=== PATIENT | female | born 1965 | race Caucasian/White ===

== ENCOUNTER 2016-11-03 08:26 | Emergency (ER) | payer BC, OTHER ==
[~2016-11-03] VITALS: Ht 167.6 cm; Wt 57.1 kg
[~2016-11-03 08:26] MED LIST: ASPI-390 PO; CIME-56 PO; RIZA10TA18 PO
[2016-11-03 08:29] VITALS: TEMP 37.1; Ht 167.6 cm; Wt 57.1 kg
[2016-11-03] MEDS ORDERED: KETOROLAC TROMETHAMINE 30 MG/ML VIAL IV STA (08:44)
[2016-11-03] MEDS ORDERED: SODIUM CHLORIDE 0.9% 1000ML 1,000 ML IV STA (08:44)
[2016-11-03] MEDS ORDERED: ALBUT/IPRATROP 3MG/0.5MG NEB 3 ML VIAL INH STA (08:44)
--- NOTE | 2016-11-03 09:00 | EMERGENCY ROOM VISIT NOTE ---
History Report prepared by Juan J: Lay Hdez Under the Supervision of: Dr. Kamlesh Posadas D.O. First contact with patient: 08:35 Chief Complaint: RIB PAIN Stated Complaint: RIB PAIN, COUGH, VARMA WHEN BREATHING History of Present Illness The patient is a 50 year old female who presents to the Emergency Room with complaints of a sudden onset of left sided rib pain after coughing just prior to arrival. Currently, she rates her discomfort as an 8/10 which increases with breathing and coughing. Patient notes that she began with a cough and cold like symptoms 3 weeks ago. Although her cold symptoms improved, her cough has persisted, and continued to worsen. Yesterday afternoon, while at work, patient states that the heat shut off in her office, and the building was very cold, which made her cough worse. She then began experiencing a burning sensation to her bilateral chest with inhalation which has persisted since that time. This morning, patient notes that she was eating breakfast when she coughed and suddenly experienced a painful popping sensation to her left chest. This was concerning to her as it felt similar to when she experienced an injury to her chest wall cartilage several years prior. Patient states that noticed mild swelling to her bilateral legs last evening, which is abnormal for her. She also feels nauseous but she denies recent fevers, chills, headache, sore throat , shortness of breath, abdominal pain, vomiting, diarrhea, or urinary symptoms. Patient states that she has a history of asthma and is prone to bronchitis. Patient has history of uterine ablation in 2012. She has not had a period since that time. Patient denies hx of tobacco use. 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 A total of 10 systems reviewed and were otherwise negative. Past Medical & Surgical Medical Problems: (1) Migraine (2) Ovarian cyst Surgical Problems: (1) H/O prior ablation treatment (2) History of dilatation and curettage Social History Smoking Status: Never Smoker Alcohol Use: none Marital Status: Housing Status: lives with significant other Occupation Status: employed Current/Historical Medications Scheduled Albuterol Hfa (Ventolin Hfa), 1 PUFF INH Q4 Ibuprofen Tab (Advil), 400-600 MG PO Q6H Prednisone (Prednisone Tab), 40 MG PO DAILY Rizatriptan Benzoate (Maxalt), 10 MG PO UD Allergies Coded Allergies: Latex (Verified Allergy, Mild, RASH, BLISTERS, 11/03/16) Meperidine (Unverified Allergy, Unknown, UNKNOWN, 11/03/16) Peanut Oil (Unverified Allergy, Unknown, UNKNOWN, 11/03/16) Penicillins (Unverified Allergy, Unknown, UNKNOWN, 11/03/16) Progesterone (Unverified Allergy, Unknown, UNKNOWN, 11/03/16) Physical Exam Vital Signs Date Time Temp Pulse Resp B/P Pulse Ox O2 Delivery O2 Flow Rate FiO2 11/03/16 10:27 78 18 110/52 96 Room Air 11/03/16 09:48 88 18 115/84 99 Room Air 11/03/16 09:08 80 11/03/16 09:06 96 Room Air 11/03/16 09:06 96 Room Air 11/03/16 08:29 37.1 86 18 120/71 98 Room Air Physical Exam GENERAL: Patient is awake, alert, somewhat anxious and uncomfortable appearing. EYES: The conjunctivae are clear. The pupils are round and reactive. EARS, NOSE, MOUTH AND THROAT: The nose is without any evidence of any deformity. Mucous membranes are moist tongue is midline NECK: The neck is nontender and supple. RESPIRATORY: Splinting respirations noted. Diminished breath sounds noted in the left lung field. Faint wheezing in both upper lung reyes. No retractions were noted. CARDIOVASCULAR: Regular rate and rhythm noted there no murmurs rubs or gallops normal S1 normal S2 GASTROINTESTINAL: The abdomen is soft. Bowel sounds are present in all quadrants. Abdomen is nontender CHEST: There was tenderness over the left anterior chest wall to palpation. MUSCULOSKELETAL/EXTREMITIES: There is no evidence of gross deformity full range of motion is noted in the hips and shoulders SKIN: Trace pedal edema noted bilaterally. There is no obvious evidence of any rash. There are no petechiae, pallor or cyanosis noted. NEUROLOGIC: Patient is awake alert and oriented x3 strength. Medical Decision & Procedures ER Provider Diagnostic Interpretation: X-ray results as stated below per interpretation by me and the radiologist. CHEST ONE VIEW PORTABLE CLINICAL HISTORY: Respiratory distress. Asthma. Cough. COMPARISON STUDY: 01/27/2011 FINDINGS: The cardiac and mediastinal contours are normal. There is no evidence of focal pulmonary consolidation. There is no evidence of failure. No pleural effusions are visualized.[ IMPRESSION: No active disease in the chest. Electronically signed by: Alexander Cote M.D. 11/03/2016 9:02 AM Laboratory Results 11/03/16 09:10 Red Blood Count 4.07, Mean Corpuscular Volume 92.4, Mean Corpuscular Hemoglobin 31.0, Mean Corpuscular Hemoglobin Concent 33.5, Mean Platelet Volume 9.6, Neutrophils (%) (Auto) 58.5, Lymphocytes (%) (Auto) 27.1, Monocytes (%) (Auto) 10.6, Eosinophils (%) (Auto) 3.0, Basophils (%) (Auto) 0.6, Neutrophils # (Auto ) 2.92, Lymphocytes # (Auto) 1.35, Monocytes # (Auto) 0.53, Eosinophils # (Auto ) 0.15, Basophils # (Auto) 0.03 11/03/16 09:10 Test 11/03/16 09:10 11/03/16 09:15 11/03/16 09:20 White Blood Count 4.99 K/uL (4.8-10.8) Red Blood Count 4.07 M/uL (4.2-5.4) Hemoglobin 12.6 g/dL (12.0-16.0) Hematocrit 37.6 % (37-47) Mean Corpuscular Volume 92.4 fL (80-100) Mean Corpuscular Hemoglobin 31.0 pg (25-34) Mean Corpuscular Hemoglobin Concent 33.5 g/dl (32-36) Platelet Count 303 K/uL (130-400) Mean Platelet Volume 9.6 fL (7.4-10.4) Neutrophils (%) (Auto) 58.5 % Lymphocytes (%) (Auto) 27.1 % Monocytes (%) (Auto) 10.6 % Eosinophils (%) (Auto) 3.0 % Basophils (%) (Auto) 0.6 % Neutrophils # (Auto) 2.92 K/uL (1.4-6.5) Lymphocytes # (Auto) 1.35 K/uL (1.2-3.4) Monocytes # (Auto) 0.53 K/uL (0.11-0.59) Eosinophils # (Auto) 0.15 K/uL (0-0.5) Basophils # (Auto) 0.03 K/uL (0-0.2) RDW Standard Deviation 45.4 fL (36.4-46.3) RDW Coefficient of Variation 13.5 % (11.5-14.5) Immature Granulocyte % (Auto) 0.2 % Immature Granulocyte # (Auto) 0.01 K/uL (0.00-0.02) Prothrombin Time 10.4 SECONDS (9.0-12.0) Prothromb Time International Ratio 1.0 (0.9-1.1) Activated Partial Thromboplast Time 24.8 SECONDS (21.0-31.0) Partial Thromboplastin Ratio 1.0 Anion Gap 9.0 mmol/L (3-11) Est Creatinine Clear Calc Drug Dose 88.2 ml/min Estimated GFR () 117.4 Estimated GFR (Non- 101.3 BUN/Creatinine Ratio 27.2 (10-20) Calcium Level 9.4 mg/dl (8.5-10.1) Total Bilirubin 1.1 mg/dl (0.2-1) Aspartate Amino Transf (AST/SGOT) 21 U/L (15-37) Alanine Aminotransferase (ALT/SGPT) 29 U/L (12-78) Alkaline Phosphatase 53 U/L (45-117) Total Creatine Kinase 54 U/L (26-192) Creatine Kinase MB 0.8 ng/ml (0.5-3.6) Creatine Kinase MB Ratio 1.5 (0-3.0) Troponin I < 0.015 ng/ml (0-0.045) Total Protein 7.6 gm/dl (6.4-8.2) Albumin 3.9 gm/dl (3.4-5.0) Globulin 3.7 gm/dl (2.5-4.0) Albumin/Globulin Ratio 1.1 (0.9-2) Human Chorionic Gonadotropin, Qual NEG (NEG) Bedside D-Dimer 109 ng/mlFEU (0-450) Urine Color YELLOW Urine Appearance CLEAR (CLEAR) Urine pH 7.5 (4.5-7.5) Urine Specific [place] 1.007 (1.000-1.030) Urine Protein NEG (NEG) Urine Glucose (UA) NEG (NEG) Urine Ketones NEG (NEG) Urine Occult Blood NEG (NEG) Urine Nitrite NEG (NEG) Urine Bilirubin NEG (NEG) Urine Urobilinogen NEG (NEG) Urine Leukocyte Esterase NEG (NEG) Laboratory results per my review. Medications Administered Medications (Trade) Dose Ordered Sig/Rosalva Route Start Time Stop Time Status Last Admin Dose Admin Sodium Chloride (Nss 1000ml) 1,000 ml @ 999 mls/hr Q1H1M STAT IV 11/03/16 08:44 11/03/16 09:44 DC 11/03/16 08:52 999 MLS/HR Albuterol/ Ipratropium (Duoneb) 3 ml NOW STAT INH 11/03/16 08:44 11/03/16 08:46 DC 11/03/16 08:51 3 ML ECG Indication: chest pain Rate (beats per minute): 77 Rhythm: normal sinus Findings: no acute ischemic change, no ectopy, other (No acute ST segments) Change: no significant change (when compared to EKG from 01/27/11.) ED Course 0840: The patient was evaluated in room B11. A complete history and physical examination were performed. 0844: Toradol 30 mg IV, DuoNeb 3 ml INH and NSS bolus IV were ordered. 1010: Upon revaluation, the patient was doing well and appeared to be resting more comfortably. I updated her on the results of her radiology reports and lab tests. Discharge instructions were also discussed at this time. She verbalized her understanding and agreement with the treatment plan, and she is now ready for disposition. Medical Decision Differential diagnosis: Etiologies such as cardiac ischemia, aortic dissection, pulmonary embolism, pneumonia, pneumothorax, musculoskeletal, infections, pericarditis, myocarditis , esophageal rupture, gastrointestinal, as well as others were entertained. Nursing notes reviewed. The patient is a 50-year-old female who presented to the emergency department for an evaluation of chest pain. The patient has had a problem with a cough for the last few weeks. She states that she's been coughing a lot and felt a pull in her left chest wall. She presented with very significant left-sided chest pain which was reproducible. I do feel that this pain is musculoskeletal in nature. She states that she had a similar episode in the past but I was concerned with the length of this cough. I discussed the patient's laboratory radiographic studies with her. She was found have a negative d-dimer. Her chest x-ray did not show any acute disease. She was started on a DuoNeb as well as a course of prednisone. She was also encouraged to continue taking Motrin and Tylenol for pain and rest. She was also encouraged to continue all other medications as prescribed and follow-up with her family doctor this week. Otherwise she was encouraged to return to emergency department immediately if symptoms change worsen or if the need arises. Impression Primary Impression: Chest wall pain Additional Impression: Bronchitis Scribe Attestation The scribe's documentation has been prepared under my direction and personally reviewed by me in its entirety. I confirm that the note above accurately reflects all work, treatment, procedures, and medical decision making performed by me. Departure Information Dispostion Home / Self-Care Prescriptions Prednisone (Prednisone Tab) 20 Mg Tab 40 MG PO DAILY, #10 TAB Prov: Kamlesh Posadas, 11/03/16 Albuterol Hfa (VENTOLIN HFA) 200 Puffs/09754 Mcg Aers 1 PUFF INH Q4, #1 INHALER Prov: Kamlesh Posadas DO 11/03/16 Referrals Colin Gonzalez M.D. (PCP) Forms HOME CARE DOCUMENTATION FORM, IMPORTANT VISIT INFORMATION, WORK / SCHOOL INSTRUCTIONS Patient Instructions A Signature Page, My [facility]
--- NOTE | 2016-11-03 09:03 | DIAGNOSTIC IMAGING REPORT ---
CHEST ONE VIEW PORTABLE CLINICAL HISTORY: Respiratory distress. Asthma. Cough. COMPARISON STUDY: 01/27/2011 FINDINGS: The cardiac and mediastinal contours are normal. There is no evidence of focal pulmonary consolidation. There is no evidence of failure. No pleural effusions are visualized.[ IMPRESSION: No active disease in the chest. Electronically signed by: Alexander Cote M.D. 11/03/2016 9:02 AM
[2016-11-03 09:06] VITALS: O2SAT 96
[2016-11-03 09:22] LABS: BASO % 0.6 %; BASO ABS # 0.03 K/uL (0-0.2); COMPLETE YES; HEMATOCRIT 37.6 % (37-47); IG% 0.2 %; LYMPH % 27.1 %; LYMPH ABS # 1.35 K/uL (1.2-3.4); MEAN CELL VOLUME 92.4 fL (80-100); MEAN CORPUSCULAR HGB CONC 33.5 g/dl (32-36); MEAN PLATELET VOLUME 9.6 fL (7.4-10.4); MONO % 10.6 %; NEUT % 58.5 %; PLATELET COUNT 303 K/uL (130-400); RED BLOOD COUNT 4.07 M/uL (4.2-5.4); WHITE BLOOD COUNT 4.99 K/uL (4.8-10.8)
[2016-11-03 09:31] LABS: PROTHROMBIN TIME (PATIENT) 10.4 SECONDS (9.0-12.0)
[2016-11-03] MEDS ORDERED: IBUP-103 PO (09:31)
[2016-11-03 09:38] LABS: URINE APPEARANCE CLEAR (CLEAR); URINE BILIRUBIN NEG (NEG); URINE COLOR YELLOW; URINE NITRITE NEG (NEG); URINE PH 7.5 (4.5-7.5); URINE SPECIFIC GRAVITY 1.007 (1.000-1.030); UROBILINOGEN NEG (NEG)
[2016-11-03 09:42] LABS: ALT/SGPT 29 U/L (12-78); BLOOD UREA NITROGEN 19 mg/dl (7-18); BUN/CREATININE RATIO 27.2 (10-20); CALCIUM 9.4 mg/dl (8.5-10.1); CARBON DIOXIDE 26 mmol/L (21-32); CHLORIDE 106 mmol/L (98-107); CREATININE 0.68 mg/dl (0.60-1.20); GLUCOSE 87 mg/dl (70-99); POTASSIUM 4.1 mmol/L (3.5-5.1); SODIUM 141 mmol/L (136-145)
[2016-11-03 09:47] LABS: ALB/GLOB RATIO 1.1 (0.9-2); ALKALINE PHOSPHATASE 53 U/L (45-117); AST/SGOT 21 U/L (15-37); CKMB/CK RATIO 1.5 (0-3.0)
[2016-11-03 09:53] LABS: MANUAL MICROSCOPIC REQUIRED? NO; REVIEW REQ? NO
[2016-11-03 09:54] LABS: PREG INTERNAL NEGATIVE QC NEG CLEAR BACKGROUND; PREG INTERNAL POSITIVE QC POS CONTROL LINE
[2016-11-03] MEDS ORDERED: PRED20TA2 PO (10:13)
[2016-11-03] MEDS ORDERED: VNTHFA/IN INH (10:13)
[2016-11-03 10:27] VITALS: BP 110/52; PULSE 78; O2SAT 96
== END 2016-11-03 10:50 | disposition home or self-care (01) ==
LOC: C.EDB 08:27
DX: R07.89 Other chest pain (principal); J40 Bronchitis, not specified as acute or chronic; J45.909 Unspecified asthma, uncomplicated; G43.909 Migraine, unspecified, not intractable, without status migrainosus

== ENCOUNTER → 2017-02-01 | Outpatient (CLI) | payer BC ==
[~2017-02-01] MED LIST changes: -ASPI-390 PO; -CIME-56 PO; +IBUP-103 PO; +PRED20TA2 PO; +VNTHFA/IN INH
[2017-02-01 13:24] LABS: THYROID STIMULATING HORMONE 4.59 uIu/ml (0.300-4.500)
== END | disposition home or self-care (01) ==
LOC: C.LAB1850 11:51
PROVIDERS: ATTEND Obstetrics & Gynecology
DX: N95.1 Menopausal and female climacteric states (principal); R68.89 Other general symptoms and signs

== ENCOUNTER → 2017-02-01 | Outpatient (CLI) | payer BC | END | disposition home or self-care (01) | LOC: C.PAPS 16:34 | PROVIDERS: ATTEND Obstetrics & Gynecology | DX: Z01.419 Encounter for gynecological examination (general) (routine) without abnormal findings (principal) ==

== ENCOUNTER → 2017-02-01 | Outpatient (CLI) | payer BC ==
[2017-02-01 15:36] LABS: PREG INTERNAL NEGATIVE QC NEG CLEAR BACKGROUND; PREG INTERNAL POSITIVE QC POS CONTROL LINE
== END | disposition home or self-care (01) ==
LOC: C.LABSPEC 14:41
PROVIDERS: ATTEND Obstetrics & Gynecology
DX: N91.2 Amenorrhea, unspecified (principal)

== ENCOUNTER → 2017-02-11 | Outpatient (CLI) | payer BC ==
--- NOTE | 2017-02-15 13:19 | MAMMOGRAPHY REPORT ---
BILATERAL DIGITAL SCREENING MAMMOGRAM TOMOSYNTHESIS WITH CAD: 02/11/2017 CLINICAL HISTORY: Routine screening. Patient has no complaints. TECHNIQUE: Breast tomosynthesis in addition to standard 2D mammography was performed. Current study was also evaluated with a Computer Aided Detection (CAD) system. COMPARISON: No prior exams were available for comparison. BREAST COMPOSITION: The tissue of both breasts is extremely dense, which lowers the sensitivity of mammography. FINDINGS: There is a benign intramammary lymph node in the upper outer quadrant of the left breast. No suspicious mass, architectural distortion or cluster of suspicious microcalcifications is seen. IMPRESSION: ACR BI-RADS CATEGORY 1: NEGATIVE There is no mammographic evidence of malignancy. Prior outside mammogram are currently being reques corie and if obtained a will be reviewed, compared to the current exam to assess for any more subtle c hanges, and an addendum will be made to this report. Otherwise, a 1 year screening mammogram is rec ommended. The patient will receive written notification of the results. Approximately 10% of breast cancers are not detected with mammography. A negative mammographic repor t should not delay biopsy if a clinically suggestive mass is present. Cat Bailey M.D. ay/:02/14/2017 17:58:15 Claims Technician: Wendy FORBES)(Jax), [facility] letter sent: Normal 1/2 BI-RADS Code: ACR BI-RADS Category 1: Negative
== END | disposition home or self-care (01) ==
LOC: C.MAMM 14:04
PROVIDERS: ATTEND Obstetrics & Gynecology
DX: Z12.31 Encounter for screening mammogram for malignant neoplasm of breast (principal)

== ENCOUNTER → 2017-02-17 | Outpatient (CLI) | payer BC ==
[2017-02-17 09:47] LABS: BASO % 0.5 %; BASO ABS # 0.02 K/uL (0-0.2); COMPLETE YES; HEMATOCRIT 39.6 % (37-47); LYMPH % 36.5 %; LYMPH ABS # 1.48 K/uL (1.2-3.4); MEAN CELL VOLUME 95.2 fL (80-100); MEAN CORPUSCULAR HGB CONC 33.6 g/dl (32-36); MONO % 10.6 %; NEUT % 49.4 %; PLATELET COUNT 245 K/uL (130-400); RED BLOOD COUNT 4.16 M/uL (4.2-5.4); WHITE BLOOD COUNT 4.06 K/uL (4.8-10.8)
[2017-02-17 10:37] LABS: ALT/SGPT 27 U/L (12-78); AST/SGOT 20 U/L (15-37); BLOOD UREA NITROGEN 19 mg/dl (7-18); BUN/CREATININE RATIO 22.2 (10-20); CALCIUM 9.3 mg/dl (8.5-10.1); CARBON DIOXIDE 26 mmol/L (21-32); CHLORIDE 105 mmol/L (98-107); CREATININE 0.84 mg/dl (0.60-1.20); GLUCOSE 84 mg/dl (70-99); SODIUM 141 mmol/L (136-145); TOTAL IRON BINDING CAPACITY 443 mcg/dl (250-450)
[2017-02-17 10:40] LABS: ALB/GLOB RATIO 1.2 (0.9-2); ALKALINE PHOSPHATASE 51 U/L (45-117)
[2017-02-17 12:15] LABS: LYME DISEASE AB IGM NEG (NEG)
[2017-02-17 12:18] LABS: LYME DISEASE AB IGG NEG (NEG)
== END | disposition home or self-care (01) ==
LOC: C.LAB 06:55
PROVIDERS: ATTEND Family Medicine
DX: R53.83 Other fatigue (principal)

== ENCOUNTER → 2017-05-04 | Outpatient (CLI) | payer BC ==
--- NOTE | 2017-05-04 11:52 | DIAGNOSTIC IMAGING REPORT ---
THYROID ULTRASOUND HISTORY: There are no THYROID NODULE COMPARISON: None. FINDINGS: Right lobe: Maximum dimension 5.3 cm. Generally heterogeneous internal architecture throughout. Complex nodule lower pole right thyroid measuring 1.5 x 1.0 cm. Left lobe: Heterogeneous internal architecture. Maximum dimension 5.5 cm. No major nodular pathology is present. Isthmus: No nodules. IMPRESSION: 1. Heterogeneous internal thyroid architecture bilaterally. 2. Slightly complex nodular density measuring 1.5 x 1.0 cm lower pole right thyroid. 3. Fine-needle aspiration under ultrasound guidance is suggested as follow-up. Electronically signed by: Jomar Cutler M.D. 05/04/2017 11:51 AM Dictated Date/Time: 05/04/2017 11:49 AM
== END | disposition home or self-care (01) ==
LOC: C.ULTRBC 11:21
PROVIDERS: ATTEND Family Medicine
DX: E04.1 Nontoxic single thyroid nodule (principal)

== ENCOUNTER → 2017-05-27 | Outpatient (CLI) | payer BC ==
[~2017-05-27] MED LIST changes: -PRED20TA2 PO; -VNTHFA/IN INH
--- NOTE | 2017-05-27 12:02 | Discharge Instructions ---
Discharge Instructions Procedure Procedure Date: May 27, 2017. Reason for visit: Nodular Density Of Lower Pole Of Right Thyroid. Discharge Discharge Date: May 27, 2017. Discharge Diagnosis: Right lobe thyroid nodule Instructions Activity Recommendations: No limitations Return to School/Work: no limitations Recommended Home Diet: No Limitations, Resume Previous Diet Provider Instructions: Ultrasound guided fine-needle aspiration of a right lower pole nodule was performed with 2 passes utilizing 25-gauge needles. Specimens were reviewed by the pathologist and deemed adequate for diagnosis. There were no immediate complications. ACTIVITY RECOMMENDATIONS: * Rest today. * Resume regular activity in one day. MEDICATIONS: * May take Tylenol or Ibuprofen as needed for pain. DIET: * Resume previous diet. SPECIAL CARE INSTRUCTIONS: Call your doctor if: * Temperature above 101 degrees F. * Pain not relieved by pain medicine ordered. * Increased drainage or redness from incision. * Notify your doctor with any questions or concerns. Call your doctor or go to the nearest Emergency Department if you experience: * Increased chest pain or shortness of breath. FOLLOW UP VISIT: Follow-up with Referring Physician as scheduled. Allergies Coded Allergies: Latex (Verified Allergy, Mild, RASH, BLISTERS, 11/03/16) Meperidine (Unverified Allergy, Unknown, UNKNOWN, 11/03/16) Peanut Oil (Unverified Allergy, Unknown, UNKNOWN, 11/03/16) Penicillins (Unverified Allergy, Unknown, UNKNOWN, 11/03/16) Progesterone (Unverified Allergy, Unknown, UNKNOWN, 11/03/16) [place] Recommendations: Call your doctor if: * Temperature above 101 degrees * Pain not relieved by pain medicine ordered * There is increased drainage or redness from any incision * You have any unanswered questions or concerns. Your Doctors Instructions noted above were prepared by provider Alejandro Pepper. Patient Signature Section: Patient Instructions Signature Page Dorothy Hopson-Given Patient (or Guardian) Signature/Date: I have read and understand the instructions given to me by my caregivers. Caregiver/RN/Doctor Signature/Date: The above-named patient and/or guardian has received patient instructions on this date. + Original Patient Signature Page (only) stays with chart. Please make copy for patient.
--- NOTE | 2017-05-27 13:03 | DIAGNOSTIC IMAGING REPORT ---
ULTRASOUND-GUIDED FINE-NEEDLE ASPIRATION THYROID CLINICAL HISTORY: Right thyroid nodule. COMPARISON STUDY: Thyroid ultrasound dated 05/04/2017. PROCEDURE: The risks, benefits, and alternatives to the procedure were discussed with the patient. Written informed consent was obtained. The patient was placed supine in ultrasound, and the 1.4 x 1.0 x 0.9 cm solid and cystic nodule in the right lower lobe of the thyroid was localized by ultrasound and selected for fine needle aspiration. The right neck was prepped and draped in the usual sterile fashion. The nodule was aspirated under ultrasound guidance with 2 passes utilizing 25-gauge needles. Specimens were reviewed by the pathologist in real-time and deemed adequate for diagnosis. The patient tolerated the procedure well and left the department in satisfactory condition. IMPRESSION: Completed fine-needle aspiration of a right lower pole thyroid nodule as above. Electronically signed by: Alejandro Pepper M.D. 05/27/2017 1:01 PM Dictated Date/Time: 05/27/2017 1:00 PM
== END | disposition home or self-care (01) ==
LOC: C.ULTR 10:48
PROVIDERS: ATTEND Family Medicine
DX: E04.1 Nontoxic single thyroid nodule (principal)

== ENCOUNTER → 2017-06-03 | Outpatient (CLI) | payer BC ==
[2017-06-03 14:10] LABS: PROLACTIN 8.31 ng/mL
[2017-06-03 14:11] LABS: THYROID STIMULATING HORMONE 2.62 uIu/ml (0.300-4.500)
[2017-06-08 02:17] LABS: MICROSOMAL AB 2 IU/ML (<9); PREGNENELONE **TC 31493X 11 ng/dL (22-237)
== END | disposition home or self-care (01) ==
LOC: C.LABBC 10:20
PROVIDERS: ATTEND Family Medicine
DX: E28.9 Ovarian dysfunction, unspecified (principal)

== ENCOUNTER → 2017-07-21 | Outpatient (CLI) | payer BC ==
--- NOTE | 2017-07-21 12:39 | DIAGNOSTIC IMAGING REPORT ---
PELVIS/BILATERAL HIP 2 VIEWS CLINICAL HISTORY: LEFT HIP PAIN pain COMPARISON STUDY: None FINDINGS: Negative study. Cortical margins are intact. No evidence for acetabular protrusion. Sacroiliac joints are symmetric. IMPRESSION: No acute process. The above report was generated using voice recognition software. It may contain grammatical, syntax or spelling errors. Electronically signed by: Jomar Cutler M.D. 07/21/2017 12:37 PM Dictated Date/Time: 07/21/2017 12:36 PM
== END | disposition home or self-care (01) ==
LOC: C.RAD 11:36
PROVIDERS: ATTEND Family Medicine
DX: M25.552 Pain in left hip (principal)

== ENCOUNTER 2018-02-21 15:30 | Emergency (ER) | payer BC ==
[~2018-02-21] VITALS: Ht 167.6 cm; Wt 55.8 kg
[~2018-02-21 15:30] MED LIST changes: -RIZA10TA18 PO
[2018-02-21 15:53] VITALS: O2SAT 99
[2018-02-21] MEDS ORDERED: NITROGLYCERIN 0.4 MG SL PER TAB CHARGE SL PRN (16:00)
[2018-02-21 16:01] VITALS: TEMP 36.7
--- NOTE | 2018-02-21 16:03 | EMERGENCY ROOM VISIT NOTE ---
History Report prepared by Juan J: Nichol Pacheco Under the Supervision of: Dr. Farhad Brown M.D. First contact with patient: 15:42 Chief Complaint: CHEST PAIN Stated Complaint: CHEST PAIN History of Present Illness The patient is a 52 year old female who presents to the Emergency Room with complaints of an sudden episode of chest pain which was shooting into her jaw. At the onset of her pain, the patient rates her pain as a 10/10. She reports she was at her PCP's office today for possible shingles on her right leg when the episode of chest pain occurred. The patient was given aspirin and nitroglycerin which decreased her pain to a 4/10. When EMS did the patient's EKG she said her chest pain was a 4/10. Presently, the patient rates her pain as a 2/10. The patient reports she has been having vertigo since Tuesday. The patient has a history of reflux, migraines and kidneys stones. The patient's father had a triple bypass at the age of 70. Pt denies LOC, headache, fevers, chills, diaphoresis, visual changes, neck pain, tearing pain radiating to the back, personal history or family history of aneurysm or pulmonary embolism, uncontrolled hypertension, breathing difficulties, leg swelling, coagulation abnormalities, prolonged travel, recent surgery or immobilization, nausea, vomiting, abdominal pain, melena, hematochezia, urinary symptoms, numbness, weakness, lymphadenopathy, rash, or other complaints. Source of History: patient Onset: just prior to arrival Position: chest Symptom Intensity: 2/10 Quality: other (radiates to jaw) Timing: other (episode) Associated Symptoms: + chest pain, No fevers, No chills, No headache, No diaphoresis, No cough, No neck pain, No SOB, No nausea, No vomiting, No abdominal pain, No back pain, No urinary symptoms, No weakness, No numbness Review of Systems See HPI for pertinent positives and negatives. A total of ten systems were reviewed and were otherwise negative. Past Medical & Surgical Medical Problems: (1) Migraine (2) Ovarian cyst Surgical Problems: (1) H/O prior ablation treatment (2) History of dilatation and curettage Social History Smoking Status: Never Smoker Alcohol Use: none Marital Status: Housing Status: lives with significant other Occupation Status: employed Current/Historical Medications Scheduled PRN Ibuprofen Tab (Advil), 200-600 MG PO Q6H PRN for Pain Rizatriptan Benzoate (Maxalt), 10 MG PO UD PRN for Migraine Allergies Coded Allergies: Latex (Verified Allergy, Mild, RASH, BLISTERS, 11/03/16) Meperidine (Unverified Allergy, Unknown, UNKNOWN, 11/03/16) Peanut Oil (Unverified Allergy, Unknown, UNKNOWN, 11/03/16) Penicillins (Unverified Allergy, Unknown, UNKNOWN, 11/03/16) Progesterone (Unverified Allergy, Unknown, UNKNOWN, 11/03/16) Physical Exam Vital Signs Date Time Temp Pulse Resp B/P (MAP) Pulse Ox O2 Delivery O2 Flow Rate FiO2 02/21/18 20:31 93 02/21/18 20:05 92 20 117/67 98 Room Air 02/21/18 19:46 Room Air 02/21/18 18:17 90 13 109/61 98 Room Air 02/21/18 16:25 97 18 02/21/18 16:21 102/64 02/21/18 16:20 93 14 99 02/21/18 16:17 112/66 02/21/18 16:15 88 20 02/21/18 16:14 83 02/21/18 16:13 85 26 128/63 98 Room Air 02/21/18 16:13 128/63 02/21/18 16:10 90 20 99 02/21/18 16:01 36.7 88 16 114/72 98 Room Air 02/21/18 15:54 98 Room Air 02/21/18 15:53 99 Room Air 02/21/18 15:53 99 Room Air Physical Exam GENERAL: Awake, alert, well-appearing, in no distress HENT: Normocephalic, atraumatic. Oropharynx unremarkable. EYES: Normal conjunctiva. Sclera non-icteric. NECK: Supple. No nuchal rigidity. FROM. No masses. RESPIRATORY: Clear to auscultation. No wheezes. No rales. Normal respiratory effort. CARDIAC: Normal rate. Normal rhythm. No murmurs. No rubs. Extremities warm and well perfused. Pulses equal. No JVD. GI: Soft, non-distended. No tenderness to palpation. No rebound or guarding. No masses. RECTAL: Deferred. MUSCULOSKELETAL: Atraumatic. Chest examination reveals no tenderness. The back is symmetrical on inspection without obvious abnormality. There is no CVA tenderness to palpation. No joint edema. LOWER EXTREMITIES: Calves are equal size bilaterally and non-tender. No edema. No discoloration. NEURO: Normal sensorium. No sensory or motor deficits noted. SKIN: Vesicular rash in right groin and labia extending to right gluteus, mild tenderness, no signs of cellulitis. Medical Decision & Procedures ER Provider Diagnostic Interpretation: Radiology results as stated below per my review and radiologist interpretation: CHEST ONE VIEW PORTABLE FINDINGS: The lungs are clear. Cardiac silhouette is normal in size. No pleural effusions. No pneumothorax. IMPRESSION: No acute process. Electronically signed by: Prasad Jacobs M.D. Laboratory Results 02/21/18 16:07 Red Blood Count 4.09, Mean Corpuscular Volume 95.1, Mean Corpuscular Hemoglobin 31.3, Mean Corpuscular Hemoglobin Concent 32.9, Mean Platelet Volume 8.9, Neutrophils (%) (Auto) 49.0, Lymphocytes (%) (Auto) 33.1, Monocytes (%) (Auto) 15.1, Eosinophils (%) (Auto) 2.1, Basophils (%) (Auto) 0.7, Neutrophils # (Auto ) 2.07, Lymphocytes # (Auto) 1.40, Monocytes # (Auto) 0.64, Eosinophils # (Auto ) 0.09, Basophils # (Auto) 0.03 02/21/18 16:07 Test 02/21/18 16:07 02/21/18 16:11 02/21/18 20:22 White Blood Count 4.23 K/uL (4.8-10.8) Red Blood Count 4.09 M/uL (4.2-5.4) Hemoglobin 12.8 g/dL (12.0-16.0) Hematocrit 38.9 % (37-47) Mean Corpuscular Volume 95.1 fL (80-100) Mean Corpuscular Hemoglobin 31.3 pg (25-34) Mean Corpuscular Hemoglobin Concent 32.9 g/dl (32-36) Platelet Count 211 K/uL (130-400) Mean Platelet Volume 8.9 fL (7.4-10.4) Neutrophils (%) (Auto) 49.0 % Lymphocytes (%) (Auto) 33.1 % Monocytes (%) (Auto) 15.1 % Eosinophils (%) (Auto) 2.1 % Basophils (%) (Auto) 0.7 % Neutrophils # (Auto) 2.07 K/uL (1.4-6.5) Lymphocytes # (Auto) 1.40 K/uL (1.2-3.4) Monocytes # (Auto) 0.64 K/uL (0.11-0.59) Eosinophils # (Auto) 0.09 K/uL (0-0.5) Basophils # (Auto) 0.03 K/uL (0-0.2) RDW Standard Deviation 44.4 fL (36.4-46.3) RDW Coefficient of Variation 12.8 % (11.5-14.5) Immature Granulocyte % (Auto) 0.0 % Immature Granulocyte # (Auto) 0.00 K/uL (0.00-0.02) Prothrombin Time 10.2 SECONDS (9.0-12.0) Prothromb Time International Ratio 1.0 (0.9-1.1) Activated Partial Thromboplast Time 24.8 SECONDS (21.0-31.0) Partial Thromboplastin Ratio 1.0 Anion Gap 4.0 mmol/L (3-11) Est Creatinine Clear Calc Drug Dose 76.4 ml/min Estimated GFR () 105.5 Estimated GFR (Non- 91.0 BUN/Creatinine Ratio 18.3 (10-20) Calcium Level 8.7 mg/dl (8.5-10.1) Total Bilirubin 1.2 mg/dl (0.2-1) Direct Bilirubin 0.3 mg/dl (0-0.2) Aspartate Amino Transf (AST/SGOT) 18 U/L (15-37) Alanine Aminotransferase (ALT/SGPT) 25 U/L (12-78) Alkaline Phosphatase 49 U/L (45-117) Creatine Kinase MB 0.7 ng/ml (0.5-3.6) Creatine Kinase MB Ratio 1.2 (0-3.0) Total Protein 7.6 gm/dl (6.4-8.2) Albumin 3.9 gm/dl (3.4-5.0) Lipase 174 U/L (73-393) Bedside D-Dimer 91 ng/mlFEU (0-450) Bedside Troponin I < 0.030 ng/ml (0-0.045) Total Creatine Kinase 49 U/L (26-192) Troponin I < 0.015 ng/ml (0-0.045) C-Reactive Protein < 0.29 mg/dl (0-0.29) Laboratory results reviewed by me Medications Administered Medications (Trade) Dose Ordered Sig/Rosalva Route Start Time Stop Time Status Last Admin Dose Admin Nitroglycerin (Nitrostat Tab) 0.4 mg Q5M PRN SL 02/21/18 16:00 03/23/18 15:59 02/21/18 16:12 0.4 MG Valacyclovir HCl (Valtrex Tab) 1,000 mg NOW ONCE PO 02/21/18 16:30 02/21/18 16:31 DC 02/21/18 17:00 1,000 MG ECG Per My Interpretation Indication: chest pain Rate (beats per minute): 78 Rhythm: normal sinus Findings: no acute ischemic change, no ectopy Change: Pre hospital EKG: Normal sinus 90 bpm, no ischemia no ectopy. No change between the two. ED Course 1547: The patient was evaluated in room B11B. A complete history and physical exam was performed. 1600: Ordered Nitroglycerin 0.4 mg SL. 1623: I updated the patient. When the patient got the nitro her pain temporarily increased to a 4/10 but it is now resolved. 1630: Ordered Valtrex Tab 1000 mg PO. 1651: I update the patient on the treatment plan. She is agreeable. 1655: Discussed the patient's case with Dr. Thao [facility]ont[facility]. The patient will be evaluated for further treatment and disposition. Medical Decision Prior records/ancillary studies reviewed. Triage Nursing notes reviewed and agree them. Additional history obtained from the family. The patient's history was concerning for chest pain. Differential diagnosis: Etiologies such as cardiac ischemia, aortic dissection, pulmonary embolism, pneumonia, pneumothorax, musculoskeletal, infections, pericarditis, myocarditis , esophageal rupture, gastrointestinal, as well as others were entertained. Physical examination: As above. Patient also has a zoster-like rash in the right groin. ER treatment provided: Aspirin given prehospital. The patient was given a dose of sublingual nitroglycerin On reassessment the patient felt better. Diagnostic interpretation by me: The electrocardiogram was negative for pathologic change. The labs revealed an unremarkable CBC and chemistry panel. LFTs, lipase and cardiac markers negative. D-dimer negative. Imaging studies: Chest x-ray as above The patient was brought to the emergency department by EMS from her primary office after developing crushing substernal chest pain that was resolved with nitroglycerin. Consultation: A consultation was placed with the hospitalist. The case was discussed and diagnostics were reviewed. The patient was evaluated in the ER for further treatment. Medication Reconcilliation Current Medication List: was personally reviewed by me Blood Pressure Screening Patient's blood pressure: Normal blood pressure Consults Time Called: 1649 Consulting Physician: Dr. Thao Dumont-[facility] Returned Call: [phone] Discussed the patient's case. The patient will be evaluated for further treatment and disposition. Impression Primary Impression: Left sided chest pain Scribe Attestation The scribe's documentation has been prepared under my direction and personally reviewed by me in its entirety. I confirm that the note above accurately reflects all work, treatment, procedures, and medical decision making performed by me. Departure Information Dispostion Being Evaluated By Hospitalist Referrals Colin Gonzalez M.D. (PCP) Patient Instructions My [facility]
[2018-02-21 16:18] LABS: BASO % 0.7 %; BASO ABS # 0.03 K/uL (0-0.2); EOS % 2.1 %; EOS ABS # 0.09 K/uL (0-0.5); HEMATOCRIT 38.9 % (37-47); HEMOGLOBIN 12.8 g/dL (12.0-16.0); LYMPH % 33.1 %; MEAN CELL VOLUME 95.1 fL (80-100); MEAN CORPUSCULAR HEMOGLOBIN 31.3 pg (25-34); MEAN CORPUSCULAR HGB CONC 32.9 g/dl (32-36); MEAN PLATELET VOLUME 8.9 fL (7.4-10.4); MONO % 15.1 %; MONO ABS # 0.64 K/uL (0.11-0.59); NEUT ABS # 2.07 K/uL (1.4-6.5); PLATELET COUNT 211 K/uL (130-400); RED CELL DISTRIBUTION WIDTH CV 12.8 % (11.5-14.5); RED CELL DISTRIBUTION WIDTH SD 44.4 fL (36.4-46.3); WHITE BLOOD COUNT 4.23 K/uL (4.8-10.8)
--- NOTE | 2018-02-21 16:32 | DIAGNOSTIC IMAGING REPORT ---
CHEST ONE VIEW PORTABLE HISTORY: Atypical CHEST PAIN COMPARISON: Chest 11/03/2016. FINDINGS: The lungs are clear. Cardiac silhouette is normal in size. No pleural effusions. No pneumothorax. IMPRESSION: No acute process. Electronically signed by: Prasad Jacobs M.D. 02/21/2018 4:31 PM Dictated Date/Time: 02/21/2018 4:28 PM
[2018-02-21 16:33] LABS: PTT PATIENT 24.8 SECONDS (21.0-31.0)
[2018-02-21 16:37] LABS: ALBUMIN 3.9 gm/dl (3.4-5.0); CALCIUM 8.7 mg/dl (8.5-10.1); CREATININE 0.75 mg/dl (0.60-1.20); POTASSIUM 3.6 mmol/L (3.5-5.1)
[2018-02-21 16:42] LABS: CKMB 0.7 ng/ml (0.5-3.6); TOTAL PROTEIN 7.6 gm/dl (6.4-8.2)
[2018-02-21] MEDS ORDERED: RIZA10TA18 PO (18:49)
[2018-02-21 19:46] VITALS: Ht 167.6 cm; Wt 55.8 kg
--- NOTE | 2018-02-21 20:25 | Medical Consult ---
Consultation Date of Consultation: Feb 21, 2018. Attending Physician: History of Present Illness 52 y/o F Hx Migraines, fibroids, GERD. The pt was on route to her PCP as she developed a painful rash on her R thigh that she believed was shingles. While in the car, she experienced sudden onset of central CP which radiated into her neck. The pain was severe. she felt like she could not catch her breath. She denies accompanying vomiting or diaphoresis. She was slightly nauseous. She entered her MDs office and informed them of her CP. She was provided with ASA and NTG. And redirected to the hospital. The pain subsided partially 10 minutes after the NTG was given and then subsided entirely when she was given an additional NTG in the ER. She is asymptomatic at the time of medical evaluation. The pt was provided with 2 Valtrex in the ER additionally as shingles was confirmed on her R thigh. Initial EKG and trop do not support ischemia - no additional abnormalities are noted on CXR or labs. 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 Smoking Status: Never Smoker Marital Status: Housing Status: lives with significant other Occupation Status: employed Allergies Coded Allergies: Latex (Verified Allergy, Mild, RASH, BLISTERS, 11/03/16) Meperidine (Unverified Allergy, Unknown, UNKNOWN, 11/03/16) Peanut Oil (Unverified Allergy, Unknown, UNKNOWN, 11/03/16) Penicillins (Unverified Allergy, Unknown, UNKNOWN, 11/03/16) Progesterone (Unverified Allergy, Unknown, UNKNOWN, 11/03/16) Current Inpatient Medications Current Inpatient Medications Medications (Trade) Dose Ordered Sig/Roslava Route Start Time Stop Time Status Last Admin Dose Admin Nitroglycerin (Nitrostat Tab) 0.4 mg Q5M PRN SL 02/21/18 16:00 03/23/18 15:59 02/21/18 16:12 0.4 MG Review of Systems Constitutional: No fever, No chills, No sweats Eyes: No worsening of vision ENT: No hearing loss, No unusual epistaxis, No nasal symptoms Respiratory: + shortness of breath, No cough, No sputum, No wheezing Cardiovascular: + chest pain, No orthopnea, No PND Abdomen: + pain, + nausea, No vomiting Musculoskeletal: No joint pain Genitourinary - Female: No dysuria Neurologic: No memory loss, No paralysis, No weakness Psychiatric: No depression symptoms Endocrine: No fatigue Hematologic / Lymphatic: No abnormal bleeding/bruising Integumentary: + problem reported (Painful rash on R thigh) Allergic / Immunologic: No environmental allergies Physical Exam Date Time Temp Pulse Resp B/P (MAP) Pulse Ox O2 Delivery O2 Flow Rate FiO2 02/21/18 18:17 90 13 109/61 98 Room Air 02/21/18 16:25 97 18 02/21/18 16:21 102/64 02/21/18 16:20 93 14 99 02/21/18 16:17 112/66 02/21/18 16:15 88 20 02/21/18 16:14 83 02/21/18 16:13 85 26 128/63 98 Room Air 02/21/18 16:13 128/63 02/21/18 16:10 90 20 99 02/21/18 16:01 36.7 88 16 114/72 98 Room Air 02/21/18 15:54 98 Room Air 02/21/18 15:53 99 Room Air 02/21/18 15:53 99 Room Air General Appearance: WD/WN, no apparent distress Head: normocephalic Eyes: normal inspection ENT: normal ENT inspection, pharynx normal Neck: supple, no JVD Respiratory/Chest: chest non-tender, lungs clear, normal breath sounds, no accessory muscle use Cardiovascular: regular rate, rhythm, no edema, normal peripheral pulses Abdomen/GI: normal bowel sounds, non tender, soft Back: normal inspection, no CVA tenderness Extremities/Musculoskelatal: normal inspection, no calf tenderness, normal capillary refill Neurologic/Psych: test lead II-XII nml as tested, no motor/sensory deficits, alert, oriented x 3 Skin: + pertinent finding (Shingles rash reported on R inner thigh) Laboratory Results Last 24 Hours Test 02/21/18 16:07 02/21/18 16:11 02/21/18 19:29 White Blood Count 4.23 K/uL Red Blood Count 4.09 M/uL Hemoglobin 12.8 g/dL Hematocrit 38.9 % Mean Corpuscular Volume 95.1 fL Mean Corpuscular Hemoglobin 31.3 pg Mean Corpuscular Hemoglobin Concent 32.9 g/dl Platelet Count 211 K/uL Mean Platelet Volume 8.9 fL Neutrophils (%) (Auto) 49.0 % Lymphocytes (%) (Auto) 33.1 % Monocytes (%) (Auto) 15.1 % Eosinophils (%) (Auto) 2.1 % Basophils (%) (Auto) 0.7 % Neutrophils # (Auto) 2.07 K/uL Lymphocytes # (Auto) 1.40 K/uL Monocytes # (Auto) 0.64 K/uL Eosinophils # (Auto) 0.09 K/uL Basophils # (Auto) 0.03 K/uL RDW Standard Deviation 44.4 fL RDW Coefficient of Variation 12.8 % Immature Granulocyte % (Auto) 0.0 % Immature Granulocyte # (Auto) 0.00 K/uL Prothrombin Time 10.2 SECONDS Prothromb Time International Ratio 1.0 Activated Partial Thromboplast Time 24.8 SECONDS Partial Thromboplastin Ratio 1.0 Sodium Level 138 mmol/L Potassium Level 3.6 mmol/L Chloride Level 106 mmol/L Carbon Dioxide Level 28 mmol/L Anion Gap 4.0 mmol/L Blood Urea Nitrogen 14 mg/dl Creatinine 0.75 mg/dl Est Creatinine Clear Calc Drug Dose 76.4 ml/min Estimated GFR () 105.5 Estimated GFR (Non- 91.0 BUN/Creatinine Ratio 18.3 Random Glucose 83 mg/dl Calcium Level 8.7 mg/dl Total Bilirubin 1.2 mg/dl Direct Bilirubin 0.3 mg/dl Aspartate Amino Transf (AST/SGOT) 18 U/L Alanine Aminotransferase (ALT/SGPT) 25 U/L Alkaline Phosphatase 49 U/L Total Creatine Kinase 59 U/L Creatine Kinase MB 0.7 ng/ml Creatine Kinase MB Ratio 1.2 Total Protein 7.6 gm/dl Albumin 3.9 gm/dl Lipase 174 U/L Bedside D-Dimer 91 ng/mlFEU Bedside Troponin I < 0.030 ng/ml Assessment & Plan 52 y/o F Hx Migraines, fibroids, GERD. The pt was on route to her PCP as she developed a painful rash on her R thigh that she believed was shingles. While in the car, she experienced sudden onset of central CP which radiated into her neck. The pain was severe. She felt like she could not catch her breath. She denies accompanying vomiting or diaphoresis. She was slightly nauseous. She entered her MDs office and informed them of her CP. She was provided with ASA and NTG. And redirected to the hospital. The pain subsided partially 10 minutes after the NTG was given and then subsided entirely when she was given an additional NTG in the ER. She is asymptomatic at the time of medical evaluation. The pt was provided with 2 Valtrex in the ER additionally, as shingles was confirmed on her R thigh. Initial EKG and trop do not support ischemia - no additional abnormalities are noted on CXR or labs. 1) CP - this is unlikely to be of cardiac origin as she does not have significant risk factors or any abnormalities on initial evaluation to support ACS. I would lean toward esophageal spasm which may also respond to NTG. We are currently pending a repeat troponin, CK and CRP. Provided she does not have recurrence of her pain and additional studies are WNL, we have arranged outpatient follow-up with cardiology. She is instructed to return to the hospital with symptom recurrence. 2) Shingles - prescribed Valtrex - would probably avoid a course of steroids as she is prone to GERD. 3) GERD - if symptoms persist she can try a course of a PPi or H2 reji Total time for this consult including review of labs, meds, imaging, records - discussion with pt and ER attending - 35 min
[2018-02-21 21:57] VITALS: BP 107/66; PULSE 94; O2SAT 96
== END 2018-02-21 22:22 | disposition home or self-care (01) ==
LOC: EDBD 15:30 → C.EDB 15:31
DX: R07.9 Chest pain, unspecified (principal); Z91.040 Latex allergy status; Z88.0 Allergy status to penicillin; Z88.8 Allergy status to other drugs, medicaments and biological substances; Z91.010 Allergy to peanuts

== ENCOUNTER → 2018-02-24 | Outpatient (CLI) | payer BC ==
[~2018-02-24] MED LIST changes: +RIZA10TA18 PO
== END | disposition home or self-care (01) ==
LOC: C.LAB1850 07:01
PROVIDERS: ATTEND Internal Medicine Cardiovascular Disease
DX: G43.909 Migraine, unspecified, not intractable, without status migrainosus (principal); R07.89 Other chest pain

== ENCOUNTER 2020-04-19 18:52 | Inpatient (IN) ==
[2020-04-19] MEDS ORDERED: PROPOFOL BOLUS FROM BAG IV PRN (18:54)
[2020-04-19] MEDS ORDERED: STAT IV Infusion **Titration per Protocol STA (18:54)
[2020-04-19] MEDS ORDERED: SODIUM CHLORIDE 0.9% 1000ML 1,000 ML IV ONE (19:00)
[2020-04-19] MEDS ORDERED: PROPOFOL IV EMULSION 10 MG/ML 100 ML VIAL IV ONE (19:01)
[2020-04-19] MEDS ORDERED: MAGNESIUM SULFATE / D5W 1 GM/100 ML BAG IV ONE (19:05)
--- NOTE | 2020-04-19 19:06 | XRay Report ---
XR chest 1V portable CLINICAL HISTORY: Chest Pain dyspnea COMPARISON STUDY: 02/21/2018 FINDINGS: Endotracheal tube positioned origin right main stem bronchus. This should be pulled back se veral centimeters. Mild volume loss right pulmonary apex. Lungs otherwise appear clear. Diaphragms are smooth. IMPRESSION: 1. Endotracheal tube positioned at the origin of the right mainstem bronchus. 2. This should be pulled back several centimeters. 3. Developing atelectasis right pulmonary apex. ACT 112: Negative or not required by law. The above report was generated using voice recognition software. It may contain grammatical, syntax or spelling errors. Electronically signed by: Jomar Cutler M.D. 04/19/2020 7:05 PM
[2020-04-19 19:21] LABS: Hematocrit (blood only) 40.6 % (37-47); Hemoglobin 13.4 g/dL (12.0-16.0); Mean Corpuscular Hemoglobin 32.3 pg (25-34); Mean Corpuscular Volume 97.8 fL (80-100); Mean Platelet Volume 9.6 fL (7.4-10.4); Platelet Count 250 K/uL (130-400); RDW Coefficient of Variation 12.7 % (11.5-14.5); RDW Standard Deviation 45.8 fL (36.4-46.3); Red Blood Count 4.15 M/uL (4.2-5.4)
[2020-04-19] MEDS: propofoL 1,000 MG/100 ML VIAL IV SCH ×2 (19:30→23:31)
[2020-04-19 19:33] LABS: Partial Thromboplastin Ratio 0.8; Partial Thromboplastin Time 23.1 Seconds (21.0-31.0); Prothrombin Time 10.5 Seconds (9.0-12.0)
[2020-04-19 19:35] LABS: Appearance Urine Clear (Clear); Bacteria Urine Automated Negative (Negative); Bilirubin Urine Negative (Negative); Blood Urine Trace (Negative); Color Urine Yellow; Epithelial Cell Urine Auto >30 /lpf (0-5); Glucose Urine UA Negative (Negative); Ketones Urine 1+ (Negative); Leukocyte Esterase Urine Negative (Negative); Nitrite Urine Negative (Negative); Protein Urine 2+ (Negative); Specific Gravity Urine 1.019 (1.000-1.030); Urobilinogen Urine Negative (Negative); pH Urine 5.5 (4.5-7.5)
[2020-04-19 19:53] LABS: Troponin I 0.023 ng/ml (0-0.045)
[2020-04-19 19:58] LABS: Alanine Aminotransferase 30 U/L (12-78); Albumin Level 3.8 gm/dl (3.4-5.0); Alkaline Phosphatase 62 U/L (45-117); BUN Creatinine Ratio 14.2 (10-20); Bilirubin,Total 1.2 mg/dl (0.2-1); Blood Urea Nitrogen 18 mg/dl (7-18); Calcium 8.5 mg/dl (8.5-10.1); Carbon Dioxide 16 mmol/L (21-32); Chloride 105 mmol/L (98-107); Creatine Kinase MB < 1.0 ng/ml (0.5-3.6); Est GFR (African American) 57.2; Est GFR (Non-African American) 49.3; Globulin 3.8 gm/dl (2.5-4.0); Glucose 270 mg/dl (70-99); Lipase 348 U/L (73-393); Sodium 137 mmol/L (136-145); Total Protein 7.6 gm/dl (6.4-8.2)
[2020-04-19] MEDS ORDERED: PIPERACILLIN/TAZOBACTAM 4.5 GM/120ML D5W ONE (20:13)
[2020-04-19] MEDS ORDERED: fentaNYL citrate 100 MCG/2 ML VIAL ONE (20:15)
[2020-04-19 20:20] LABS: ALC (manual) 4.05 K/uL (1.2-3.4); ANC (manual) 2.88 K/uL (1.4-6.5); Basophils # (manual) 0.07 K/uL (0-0.2); Basophils % (manual) 0.9 %; Echinocytes 1+; Eosinophils # (manual) 0.34 K/uL (0-0.5); Eosinophils % (manual) 4.3 %; Lymphocytes # (manual) 1.99 K/uL (1.2-3.4); Lymphocytes % (manual) 25.2 %; Monocytes # (manual) 0.48 K/uL (0.11-0.59); Monocytes % (manual) 6.1 %; Myelocytes # (manual) 0.07 K/uL (0-0); Myelocytes % (manual) 0.9 %; Neutrophils # (manual) 2.88 K/uL (1.4-6.5); Neutrophils % (manual) 36.5 %; Reactive Lymphocytes # (manual) 2.06 K/uL; Reactive Lymphocytes % (manual) 26.1 %; Tear Drop Cells 2+; Toxic Vacuolation 1+
[2020-04-19 20:22] LABS: Potassium 3.3 mmol/L (3.5-5.1)
[2020-04-19] MEDS ORDERED: ALBUT/IPRATROP 3MG/0.5MG NEB 3 ML VIAL INH PRN (20:48)
[2020-04-19] MEDS ORDERED: ICU PROTOCOL FOR HYPERGLYCEMIA PRN (20:48)
[2020-04-19] MEDS: FAMOTIDINE 20 MG in SYRINGE 3 ML IV SCH (21:55)
--- NOTE | 2020-04-19 21:59 | Procedure Note ---
Procedure Note Date of Service April 19, 2020 INTUBATION PROCEDURE NOTE: Attending: Dr Isatu Curtis MD Plan was to change the ET tube from size 6 to size 8 for the bronchoscopy can be performed Sedative agent used: Propofol 50 mg, fentanyl 50 MCG Paralysis agent used: None Consent was obtained from was implied given patients rapidly declining clinical status and need for airway protection. The patient was prepared in the appropriate fashion. The patient was easily pre-oxygenated by using [id number] ventilation. With help of glide scope grade 2 vocal cords were visualized and 7.5 Czech ETT was introduced on third attempt to 23 cm at the lip. Patient had steak right above the vocal cord obstructing the view. ETT was noted to build to be passed over the bougie because of the steak. After preoxygenation steak was removed with the help of forceps. Following that 7.5 Czech ETT was inserted with the help of a glide scope. The stylette was removed and balloon was inflated with 10mL of air. Appropriate Colorimetric change was appreciated for at least 10 breaths. Bilateral chest rise and breath sounds were appreciated without air sounds in the epigastrium. Patient tolerated the procedure well and there were no immediate complications. Chest Xray to follow for confirming placement. Coding CPT Codes Resuscitation - Resuscitation: 49323 Endotracheal Intubation, emergency ([id number]) [facility] Procedure Codes (Charges) Resuscitation Resuscitation: [id number] Endotracheal Intubation, emergency
[2020-04-19] MEDS ORDERED: AZTREONAM 1,000 MG in DEXTROSE 5% 100 ML IV SCH (22:00)
--- NOTE | 2020-04-19 22:02 | Procedure Note ---
Procedure Note: Bronchoscopy Procedure PREOPERATIVE DIAGNOSIS: Foreign body aspiration POSTOPERATIVE DIAGNOSIS: Foreign body aspiration PROCEDURE PERFORMED: Flexible fiberoptic bronchoscopy with forceps to remove foreign body COMPLICATIONS: None. INDICATION: As above PROCEDURE: After obtaining an informed consent from patient's . After inserting size 7 ETT. Subsequent to this, the patient was premedicated with 80 mg of propofol and 50 Mcg of fentanyl. Bronchoscope was passed through the ETT. The trachea appeared normal.there was a tooth visualized anteriorly outside of the ET tube wedged between ETT and trachea. This is around the leydi of 18 cm on the trachea The bronchoscope was then advanced through the willow, which was sharp. The scope was then advanced into the right main stem and each segment, subsegement in the right upper lobe, right middle lobe and right lower lobe were visualized. There was minimal amount of bloody secretions which were suctioned. There was foreign body appreciated in the right lower lobe which was removed with the help of forceps. The bronchoscope was subsequently withdrawn and advanced into the left mainstem. Again, each segment and subsegment was well visualized. No specific masses or other lesions were identified throughout the tracheobronchial tree on the left. There was minimal amount of bloody secretions appreciated especially in the left lower lobe which were suctioned clear. The bronchoscope was then withdrawn to the mainstem. The area was suctioned clear. The bronchoscope was then withdrawn. The patient tolerated the procedure well without evidence of desaturation or complications. Recommendations: Follow-up chest x-ray For the tooth which is wedged between the ETT and upper trachea, it is very difficult to take it out right now. Hopefully it will come out during the removal of ETT. If it does not come out and is aspirated patient will need bronchoscopy to take it out. The finding was relayed to Sony Given on the phone and he was updated about the bronchoscopy procedure.
[2020-04-19] MEDS: SODIUM CHLORIDE 0.9% 1000ML 1,000 ML IV SCH (22:09)
--- NOTE | 2020-04-19 22:26 | Critical Care Consultation ---
Date of Consultation April 19, 2020 Assessment & Plan (1) Acute airway obstruction: Reason Critically Ill: 54-year-old female with acute airway obstruction requiring intubation and emergent bronchoscopy, remaining intubated overnight Neuro - Sedation: Propofol Neurological statusneurological exam currently compromised by sedation. She had received etomidate and Versed in the ED prior to arrival. Unsure if patient would have underlying anoxic injury but she would not be a candidate for therapeutic hypothermia regardless. We will keep sedated overnight and reassess in the morning when she can likely be extubated as it would not policy change clerk. Cardiac - Elevated troponinwould suspect this is likely demand ischemia following prolonged hypoxia, also patient did receive CPR in the field -Troponin did elevate to 7, will continue to trend for now. If continues to elevate will start heparin drip -No ST changes on EKG -Continue to monitor on telemetry Cardiac arrest?Patient was in a restaurant choking on food and lost consciousness, CPR was started by police officers in the restaurant -Questionable whether patient was pulseless, as on arrival by EMS she had pulse, no shockable rhythm Respiratory - Acute airway obstructionreportedly started choking on a piece of steak, see HPI for details -Intubated with a 6.0 ETT in field, exchanged to a 7.5 ETT to allow for emergent bronc -Now status post emergent bronchoscopy with removal of large piece of steak in the trachea, see note for detail -Currently mechanically ventilated, weaning as tolerated. Will obtain SBT in a.m. to evaluate for extubation GI - Diverticulitis POAaccording to patient's daughter she was taking ciprofloxacin 500 twice daily, and Flagyl for diverticulitis -Does not appear to be an acute issue at this time, will continue outpatient regimen for now in IV form as patient is intubated N.p.o. RENAL/LYTES - AKIcreatinine 1.23 with previous baseline 0.8 -Likely prerenal/ATN in the setting of questionable cardiac arrest -Continue IV fluids -Avoid nephrotoxins -Trend routine BMPs - Foleystrict I's and O's ENDO - No history diabetes or thyroid disease ICU hyperglycemic protocol HEME - H&H stable, monitor ID - No indication for acute infection at this time, will continue outpatient Flagyl and Cipro for diverticulitis LINES/IV ACCESS - PIV's, ETT DVT PROPHYLAXIS - SCDs I have personally spent 40 minutes of critical care time in the direct management of this patient. This is a life/limb threatening event. This includes time spent evaluating patient, direct bedside care, chart review, placing orders, interpretation of diagnostic studies, discussion with consultants, patient, and family members, as well as other required patient management activities. This time is exclusive of all separately billable procedures, and teaching time and separate from and in addition to any other critical care service time. Thank you for allowing us to participate in the care of this patient. Please refer to my attending physician's documentation for any further recommendations. (2) On mechanically assisted ventilation: (3) Asthma: (4) Migraine: (5) Diverticulitis: (6) Elevated troponin: History of Present Illness Attending Physician: Pastor Mcintyre MD History of Present Illness 54-year-old female with PMH of GERD, recent diagnosis of diverticulitis as outpatient and was placed on Cipro and Flagyl, who was eating at [employer] when she began to choke on a piece of steak. She became unresponsive and CPR was started by police on scene. EMS arrived to the scene and intubated the patient, and thought they felt something slide into the patient's lung during that time. She was intubated with a 6.0 ETT. She was sedated on arrival to the emergency department, was maintaining sats on the ventilator. She was transferred to the ICU and underwent an emergent bronchoscopy during which a large piece of steak was removed from the patient's trachea, see procedure note for details. ET tube was switched during that time to 7 ETT for introduction of bronchoscopy, and patient was difficult airway. Currently patient is hemodynamically stable, maintaining oxygen saturations and currently weaning ventilator settings. Patient to remain intubated overnight, will likely be extubated in the morning. Allergies Allergy/AdvReac Type Severity Reaction Status Date / Time latex Allergy Mild RASH, Verified 04/19/20 19:39 BLISTERS meperidine Allergy Unknown UNKNOWN Unverified 04/19/20 19:39 peanut oil Allergy Unknown UNKNOWN Unverified 04/19/20 19:39 Penicillins Allergy Unknown UNKNOWN Unverified 04/19/20 19:39 progesterone Allergy Unknown UNKNOWN Unverified 04/19/20 19:39 clindamycin Allergy Rash Verified 04/19/20 19:39 ketorolac [From Toradol] AdvReac DOES NOT Verified 04/19/20 19:41 RESPOND WELL DUST & MOLD Allergy EXACERBATION Uncoded 04/19/20 19:41 OF ASTHMA Home Medications Home Medications Medication Instructions Recorded Confirmed Type rizatriptan [Maxalt] 10 mg PO UD PRN 06/08/19 04/19/20 History Gin Caps 2 tab PO BID 04/19/20 04/19/20 History Vitamin Regimen 0 tabs PO DAILY 04/19/20 History multivitamin 1 tab PO DAILY 04/19/20 04/19/20 History Probiotic Formula (inulin) 04/20/20 History ascorbic acid (vitamin C) [C-1000] 04/20/20 History ivbismi-mccppncgwwwkk-tnbfbxtn 1 tab PO Q6H PRN 04/20/20 04/20/20 History [Excedrin Migraine] budesonide [Rhinocort Allergy] 2 spray INTRANASAL BID 04/20/20 04/20/20 History ciprofloxacin HCl [Cipro] 500 mg PO BID 04/20/20 04/20/20 History green tea leaf ext-green tea tab PO 04/20/20 History [Green Tea Complex] metronidazole 500 mg PO BID 04/20/20 04/20/20 History selenium 200 mcg PO DAILY 04/20/20 04/20/20 History Patient History Medical History Asthma Migraine (Chronic) Surgical History No pertinent past surgical history Family History Other No significant family history Social History Preferred Language: Pashto 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 Beliefs That Will Affect Care: None Current Living Situation: Spouse current occupational status: employed Other Information That Helps Us Care for You: No Feels Safe at Home: Yes Smoking Status: Never smoker Hx Alcohol Use: No Hx Substance Use: No Review of Systems Review of Systems: Unobtainable due to cognitive status and Unobtainable due to endotracheal tube Physical Exam Constitutional: + mechanically ventilated Sedated Eyes: PERRL, conjunctivae normal, anicteric sclerae ENMT: external ear and nose normal, oropharynx normal Neck: trachea midline, no thyromegaly Respiratory: normal respiratory effort, lungs clear to auscultation Auscultation: no crackles and no wheezes Cardiovascular: RRR, no murmur, no edema Heart Sounds: normal S1 and normal S2 Vessels: no JVD Extremities: normal capillary refill; no edema Gastrointestinal (Abdomen): normal bowel sounds, soft, nontender, no hepatosplenomegaly Musculoskeletal: no cyanosis or clubbing, extremities motor strength 5/5 Skin: no rashes, warm and dry Neurologic: Intubated and sedated, cough gag corneals intact, PERRLA Psychiatric: Unable to assess Genitourinary: Indwelling Nevarez catheter Results & Data Results & Data ([facility]) Vital Signs (Past 12 Hours) Vital Signs Temp Pulse Resp BP Pulse Ox 04/19/20 20:10 93 H 17 101/66 99 04/19/20 20:01 92 H 16 97/70 L 98 04/19/20 20:00 96 H 16 97/70 L 98 04/19/20 19:50 102 H 16 104/76 100 04/19/20 19:41 87 16 100 04/19/20 19:40 89 17 109/68 100 04/19/20 19:30 87 16 110/62 98 04/19/20 19:20 94 H 13 104/65 100 04/19/20 19:03 36.8 C 102 H 16 98/69 L 100 Coding Level of Care Code Critical Care 1st 30-74 mins Diagnoses Acute airway obstruction J98.8 On mechanically assisted ventilation Z99.11 Asthma J45.909 Migraine G43.909 Diverticulitis K57.92 Elevated troponin R79.89
--- NOTE | 2020-04-19 22:34 | History & Physical Report ---
Date of Service April 19, 2020 Assessment & Plan (1) Admitted to intensive care unit: Patient is admitted to the intensive care unit on mechanically assisted ventilation following emergent bronchoscopy for acute airway obstruction by a piece of steak. Consult to access rn care team. Ventilator adjustments per access rn. Patient will be placed on vancomycin IV and Zosyn IV. Famotidine 20 mg IV every 12 hours Zofran 4 mg IV every 6 hours PRN Present on Admission?: Yes (2) On mechanically assisted ventilation: See above Present on Admission?: Yes (3) Acute airway obstruction: See above Present on Admission?: Yes (4) Elevated troponin: Initial EKG with new ST depressions and T wave inversions in leads V3 through V5. Troponin was initially pending as patient was taken emergently to the bronchoscopy. Troponin was later found to be elevated to 7.010, and she was started on heparin drip. Order a complete echocardiogram, and follow serial troponins. Consult cardiology. Present on Admission?: Yes (5) Abnormal EKG: See above Present on Admission?: Yes Admission and Anticipated Discharge Date Admission Date: April 19, 2020 History of Present Illness Chief Complaint: The patient presents to the emergency department after a choking episode at [employer] while she was eating a piece of steak, and subsequently became unresponsive, with CPR being initiated by police, and then was intubated by EMS upon their arrival. Primary Care Provider: Colin Gonzalez MD The patient is a 54-year-old female with a past medical history including asthma and migraine headaches. She presents as noted above. The patient is unable to contribute to her HPI or review of systems, and information was gathered from police reports and from EMS reports. Embossing Press Operator Dr. Curtis has been consulted, and is coming into emergently bronch the patient, and she will be admitted to the ICU for further treatment. Allergies Allergy/AdvReac Type Severity Reaction Status Date / Time latex Allergy Mild RASH, Verified 04/19/20 19:39 BLISTERS meperidine Allergy Unknown UNKNOWN Unverified 04/19/20 19:39 peanut oil Allergy Unknown UNKNOWN Unverified 04/19/20 19:39 Penicillins Allergy Unknown UNKNOWN Unverified 04/19/20 19:39 progesterone Allergy Unknown UNKNOWN Unverified 04/19/20 19:39 clindamycin Allergy Rash Verified 04/19/20 19:39 ketorolac [From Toradol] AdvReac DOES NOT Verified 04/19/20 19:41 RESPOND WELL DUST & MOLD Allergy EXACERBATION Uncoded 04/19/20 19:41 OF ASTHMA Home Medications Home Medications Medication Instructions Recorded Confirmed Type rizatriptan [Maxalt] 10 mg PO UD PRN 06/08/19 04/19/20 History Gin Caps 2 tab PO BID 04/19/20 04/19/20 History Vitamin Regimen 0 tabs PO DAILY 04/19/20 History multivitamin 1 tab PO DAILY 04/19/20 04/19/20 History Past Med/Surg History Medical History Asthma Migraine (Chronic) Surgical History No pertinent past surgical history Family History Other No significant family history Social History 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 HEENT--PERRL, EOMI, mucous membranes and oropharynx dry. Neck--supple. No JVD. No bruits. Thyroid normal, trachea midline, no adenopathy. Heart--normal S1 and S2. No murmurs, rubs or gallops. Lungs--decreased breath sounds throughout. Intubated Abdomen--normal bowel sounds and soft. Nondistended. Extremities--no cyanosis or clubbing. No edema. There are good distal pulses b/l. Dermatologic--normal skin turgor, normal color, no abnormal lymph nodes, no rash. Neurologic--limited exam on ventilator Rheumatologic--limited exam Psychiatric--limited exam due to sedation Results & Data Results & Data ([facility]) Vital Signs (Past 12 Hours) Vital Signs Temp Pulse Resp BP Pulse Ox 04/19/20 20:10 93 H 17 101/66 99 04/19/20 20:01 92 H 16 97/70 L 98 04/19/20 20:00 96 H 16 97/70 L 98 04/19/20 19:50 102 H 16 104/76 100 04/19/20 19:41 87 16 100 04/19/20 19:40 89 17 109/68 100 04/19/20 19:30 87 16 110/62 98 04/19/20 19:20 94 H 13 104/65 100 04/19/20 19:03 98.2 F 102 H 16 98/69 L 100 Laboratory Results Laboratory Results WBC 7.90 K/uL (4.8-10.8) 04/19/20 18:50 RBC 4.15 M/uL (4.2-5.4) L 04/19/20 18:50 Hgb 13.4 g/dL (12.0-16.0) 04/19/20 18:50 Hct 40.6 % (37-47) 04/19/20 18:50 MCV 97.8 fL (80-100) 04/19/20 18:50 MCH 32.3 pg (25-34) 04/19/20 18:50 MCHC 33.0 g/dL (32-36) 04/19/20 18:50 RDW Std Deviation 45.8 fL (36.4-46.3) 04/19/20 18:50 RDW Coeff of Onel 12.7 % (11.5-14.5) 04/19/20 18:50 Plt Count 250 K/uL (130-400) 04/19/20 18:50 MPV 9.6 fL (7.4-10.4) 04/19/20 18:50 Neutrophils % (Manual) 36.5 % 04/19/20 18:50 Lymphocytes % (Manual) 25.2 % 04/19/20 18:50 Reactive Lymphs % (Man) 26.1 % 04/19/20 18:50 Monocytes % (Manual) 6.1 % 04/19/20 18:50 Eosinophils % (Manual) 4.3 % 04/19/20 18:50 Basophils % (Manual) 0.9 % 04/19/20 18:50 Myelocytes % (Man) 0.9 % 04/19/20 18:50 Neutrophils # (Manual) 2.88 K/uL (1.4-6.5) 04/19/20 18:50 Total Absolute Neuts 2.88 K/uL (1.4-6.5) 04/19/20 18:50 Lymphocytes # (Manual) 1.99 K/uL (1.2-3.4) 04/19/20 18:50 Reactive Lymphs # 2.06 K/uL 04/19/20 18:50 Total Abs Lymphocytes 4.05 K/uL (1.2-3.4) H 04/19/20 18:50 Monocytes # (Manual) 0.48 K/uL (0.11-0.59) 04/19/20 18:50 Eosinophils # (Manual) 0.34 K/uL (0-0.5) 04/19/20 18:50 Basophils # (Manual) 0.07 K/uL (0-0.2) 04/19/20 18:50 Myelocytes # (Manual) 0.07 K/uL (0-0) H 04/19/20 18:50 Toxic Vacuolation 1+ 04/19/20 18:50 Tear Drop Cells 2+ 04/19/20 18:50 Echinocytes 1+ 04/19/20 18:50 PT 10.5 Seconds (9.0-12.0) 04/19/20 18:50 INR 1.0 (0.9-1.1) 04/19/20 18:50 APTT 23.1 Seconds (21.0-31.0) 04/19/20 18:50 PTT Ratio 0.8 04/19/20 18:50 Sample Site R Radial 04/19/20 23:33 POC pH 7.41 (7.35-7.45) 04/19/20 23:33 POC pCO2 32 mmHg (35-46) L 04/19/20 23:33 POC pO2 235 mmHg (80-95) H 04/19/20 23:33 POC HCO3 20 glo/L (19-24) 04/19/20 23:33 POC Total CO2 21 mmol/L (24-31) L 04/19/20 23:33 POC Base Excess -4.0 glo/L (-9-1.8) 04/19/20 23:33 POC ABG O2 Sat 100.0 % (90-95) H 04/19/20 23:33 Martinez Test NA 04/19/20 23:33 O2 Delivery Device Ventilator 04/19/20 23:33 POC O2 Rate 20 04/19/20 23:33 Minute Ventilation 9.0 04/19/20 23:33 POC FiO2 60 % 04/19/20 23:33 Tidal Volume 450 04/19/20 23:33 PEEP 5 04/19/20 23:33 Sodium 137 mmol/L (136-145) 04/19/20 18:50 Potassium 3.3 mmol/L (3.5-5.1) L 04/19/20 20:03 Chloride 105 mmol/L (98-107) 04/19/20 18:50 Carbon Dioxide 16 mmol/L (21-32) L 04/19/20 18:50 Anion Gap 16.0 (3-11) H 04/19/20 18:50 BUN 18 mg/dl (7-18) 04/19/20 18:50 Creatinine 1.23 mg/dl (0.6-1.2) H 04/19/20 18:50 Est Cr Clr Drug Dosing Not Reportable 04/19/20 18:50 Est GFR ( Amer) 57.2 04/19/20 18:50 Est GFR (Non-Af Amer) 49.3 04/19/20 18:50 BUN/Creatinine Ratio 14.2 (10-20) 04/19/20 18:50 Glucose 270 mg/dl (70-99) H 04/19/20 18:50 POC Glucose 114 mg/dl (70-99) H 04/19/20 22:52 Calcium 8.5 mg/dl (8.5-10.1) 04/19/20 18:50 Total Bilirubin 1.2 mg/dl (0.2-1) H 04/19/20 18:50 AST 31 U/L (15-37) 04/19/20 20:03 ALT 30 U/L (12-78) 04/19/20 18:50 Alkaline Phosphatase 62 U/L (45-117) 04/19/20 18:50 Total Creatine Kinase 88 U/L (26-192) 04/19/20 20:03 CK-MB (CK-2) < 1.0 ng/ml (0.5-3.6) 04/19/20 18:50 Troponin I 13.100 ng/ml (0-0.045) H* 04/20/20 01:27 Total Protein 7.6 gm/dl (6.4-8.2) 04/19/20 18:50 Albumin 3.8 gm/dl (3.4-5.0) 04/19/20 18:50 Globulin 3.8 gm/dl (2.5-4.0) 04/19/20 18:50 Albumin/Globulin Ratio 1.0 (0.9-2) 04/19/20 18:50 Lipase 348 U/L (73-393) 04/19/20 18:50 Urine Color Yellow 04/19/20 19:13 Urine Appearance Clear (Clear) 04/19/20 19:13 Urine pH 5.5 (4.5-7.5) 04/19/20 19:13 Ur Specific [place] 1.019 (1.000-1.030) 04/19/20 19:13 Urine Protein 2+ (Negative) H 04/19/20 19:13 Urine Glucose (UA) Negative (Negative) 04/19/20 19:13 Urine Ketones 1+ (Negative) H 04/19/20 19:13 Urine Blood Trace (Negative) H 04/19/20 19:13 Urine Nitrite Negative (Negative) 04/19/20 19:13 Urine Bilirubin Negative (Negative) 04/19/20 19:13 Urine Urobilinogen Negative (Negative) 04/19/20 19:13 Ur Leukocyte Esterase Negative (Negative) 04/19/20 19:13 Urine WBC (Auto) 1-5 /hpf (0-5) 04/19/20 19:13 Urine RBC (Auto) 5-10 /hpf (0-4) H 04/19/20 19:13 U Hyaline Cast (Auto) 10-30 /lpf (0-5) H 04/19/20 19:13 U Epithel Cells (Auto) >30 /lpf (0-5) H 04/19/20 19:13 Urine Bacteria (Auto) Negative (Negative) 04/19/20 19:13 Ur Renal Epithelial Cell Not Reportable 04/19/20 19:13 Nasal Screen MRSA (PCR) Negative (Negative) 04/19/20 22:45 Diagnostic Findings [facility] [place] [phone] XRay Report Patient: Lisa BENITES Date: 04/19/20 MR#: [id number]: [address] [facility] Acct ID:[id number]: Date: 1965City Zip: [place] [address] Age: 54Location: ED Sex: F Room/Bed: Att Phy:Diagnosis: comprimised airway Esther Phy: Colin Gonzalez, MDService Date: 04/19/20 Fam Phy:Interpreting Phy: Jomar Cutler MD Admit Phy: Ordering Phy: Pedro Colon MD cc: ~ XR chest 1V portable CLINICAL HISTORY: Chest Pain dyspnea COMPARISON STUDY: 02/21/2018 FINDINGS: Endotracheal tube positioned origin right main stem bronchus. This should be pulled back several centimeters. Mild volume loss right pulmonary apex. Lungs otherwise appear clear. Diaphragms are smooth. IMPRESSION: 1. Endotracheal tube positioned at the origin of the right mainstem bronchus. 2. This should be pulled back several centimeters. 3. Developing atelectasis right pulmonary apex. ACT 112: Negative or not required by law. The above report was generated using voice recognition software. It may contain grammatical, syntax or spelling errors. Electronically signed by: Jomar Cutler M.D. 04/19/2020 7:05 PM Dictated: 04/19/201902 Transcribed: 04/19/201902 Code Status & VTE Plan Code Status Full code VTE Prophylaxis Plan VTE Prophylaxis will be ordered: Yes Critical Care Time Critical Care Time: Yes Total Critical Care Time: 40 Total critical care time was 40 minutes PG Care Time/CCT Total # of Minutes Spent Total Time Spent with Patient: Total time spent is greater than 50% in coordination of care (as documented) at patient's floor/unit and/or counseling patient: Critical Care Time: Yes Total Critical Care Time: 40 Coding Level of Care Code 11494 Initial Inpt Care Lvl 3 Diagnoses Admitted to intensive care unit Z78.9 On mechanically assisted ventilation Z99.11 Acute airway obstruction J98.8 Elevated troponin R79.89 Abnormal EKG R94.31 Additional Codes Critical Care Time - Critical Care Time: Yes ([id number]) Time Spent (min) 40
[2020-04-19] MEDS: metroNIDAZOLE 500 MG/100 ML BAG IV SCH (23:36)
--- NOTE | 2020-04-19 23:38 | Emergency Department Note ---
History of Present Illness General Chief complaint: Choking Stated complaint: comprimised airway Time Seen by Provider: 04/19/20 18:53 Source: family, EMS, RN notes reviewed and old records reviewed Mode of arrival: EMS Limitations: altered mental status and physical limitation History of Present Illness Provider complaint: Choking, unresponsive Onset (ago): hour(s) less than 1 This is a 54-year-old female who was eating at [employer] when she began choking on a piece of steak. The patient became unresponsive and CPR was initiated by police on scene. She did not receive any shocks from AED and did not receive any epinephrine. Upon arrival of EMS they intubated the patient. While passing the tube they felt something slide into the patient's long. Upon arrival to the emergency department the patient has already received etomidate as well as Versed. She is unresponsive to painful stimuli. Home Medications Home Medications Medication Instructions Recorded Confirmed Type rizatriptan [Maxalt] 10 mg PO UD PRN 06/08/19 04/19/20 History Gin Caps 2 tab PO BID 04/19/20 04/19/20 History Vitamin Regimen 0 tabs PO DAILY 04/19/20 History multivitamin 1 tab PO DAILY 04/19/20 04/19/20 History Allergies Allergy/AdvReac Type Severity Reaction Status Date / Time latex Allergy Mild RASH, Verified 04/19/20 19:39 BLISTERS meperidine Allergy Unknown UNKNOWN Unverified 04/19/20 19:39 peanut oil Allergy Unknown UNKNOWN Unverified 04/19/20 19:39 Penicillins Allergy Unknown UNKNOWN Unverified 04/19/20 19:39 progesterone Allergy Unknown UNKNOWN Unverified 04/19/20 19:39 clindamycin Allergy Rash Verified 04/19/20 19:39 ketorolac [From Toradol] AdvReac DOES NOT Verified 04/19/20 19:41 RESPOND WELL DUST & MOLD Allergy EXACERBATION Uncoded 04/19/20 19:41 OF ASTHMA Past Med/Surg History Medical History Asthma Migraine (Chronic) Surgical History No pertinent past surgical history Family History Other No significant family history Social History Preferred Language: Malay Director [employer] Required: No Beliefs That Will Affect Care: None Current Living Situation: Spouse current occupational status: employed Other Information That Helps Us Care for You: No Feels Safe at Home: Yes Smoking Status: Never smoker Hx Alcohol Use: No Hx Substance Use: No Review of Systems Unobtainable due to endotracheal tube and Unobtainable due to reduced consciousness Physical Exam Vital Signs Vital Signs - 24 hr 04/19/20 19:03 04/19/20 19:20 04/19/20 19:30 Temperature 36.8 C Temperature Source Rectal Pulse Rate 102 H 94 H 87 Pulse Rate from SpO2 Sensor 94 H 88 Respiratory Rate 16 13 16 Respiratory Depth Normal Blood Pressure 98/69 L 104/65 110/62 Blood Pressure Mean 78 86 95 Pulse Oximetry 100 100 98 Oxygen Delivery Method Ambu-Bag Mechanical Vent Mechanical Vent Fraction of Inspired Oxygen 70 70 Sepsis Recent Fever Within 48 Hours No Sepsis New/Unexplained Change in Mental Status No Sepsis Action Taken by Nursing No Action Required 04/19/20 19:40 04/19/20 19:41 04/19/20 19:50 Temperature Temperature Source Pulse Rate 89 87 102 H Pulse Rate from SpO2 Sensor 88 102 H Respiratory Rate 17 16 16 Respiratory Depth Blood Pressure 109/68 104/76 Blood Pressure Mean 85 82 Pulse Oximetry 100 100 100 Oxygen Delivery Method Mechanical Vent Mechanical Vent Fraction of Inspired Oxygen 70 70 50 Sepsis Recent Fever Within 48 Hours Sepsis New/Unexplained Change in Mental Status Sepsis Action Taken by Nursing 04/19/20 20:00 04/19/20 20:01 Temperature Temperature Source Pulse Rate 96 H 92 H Pulse Rate from SpO2 Sensor 96 H 92 H Respiratory Rate 16 16 Respiratory Depth Blood Pressure 97/70 L 97/70 L Blood Pressure Mean 81 81 Pulse Oximetry 98 98 Oxygen Delivery Method Mechanical Vent Fraction of Inspired Oxygen 50 Sepsis Recent Fever Within 48 Hours Sepsis New/Unexplained Change in Mental Status Sepsis Action Taken by Nursing VITAL SIGNS - Vital signs and nursing notes were reviewed. GENERAL - 54-year-old female appearing stated age who is in acute distress, ETT tube in place SKIN - Without rashes. HEAD - NC/AT. EYES - PERRL with EOMI bilaterally. Sclera anicteric. Palpebral conjunctiva pink and moist with no injection noted. EARS - No deformities of external structures noted on gross examination bilaterally. No pain elicited with palpation of the tragus bilaterally. External auditory canals without discharge or otorrhea. Tympanic membranes pearly oce without retraction or bulging. No fluid or purulent material visualized behind the TM. Handle of malleus, umbo, cone of light, pars tensa/flaccid all easily visualized. NOSE - Midline and without cyanosis. No epistaxis or purulent drainage noted. Septum midline without deviation or septal hematoma noted. MOUTH/OROPHARYNX - ETT tube in place Without perioral cyanosis. Buccal mucosa pink and moist and without leukoplakia. Tongue midline with equal elevation of palate bilaterally. No tonsillar hypertrophy, erythema, or exudates noted. dentition noted. NECK - Neck with FROM. Supple to palpation. lymphadenopathy noted. No nuchal rigidity. LUNGS - Chest wall symmetric without accessory muscle use, intercostals retractions, or central cyanosis. Normal vesicular breath sounds CTA B/L. No wheezes, rales, or rhonchi appreciated. CARDIAC - RRR with S1/S2. No murmur, rubs, or gallops appreciated. ABDOMEN - Abdominal contour without pulsations or visible masses. BS normoactive all four quadrants. No tenderness, palpable masses, hepatosplenomegaly, or ascites noted. EXTREMITIES - No clubbing or peripheral cyanosis. No pretibial edema present. +3/5 radial, posterior tibial, and dorsalis pedis pulses palpated throughout. +5/5 strength noted in UE/LE bilaterally. NEUROLOGIC - GCS 3I PSYCH - Pt unresponsive Course Administered Medications Propofol (Diprivan) 1,000 mg in 100 mls @ 12.39 mls/hr IV .Q8H5M [facility]; Protocol Stop: 04/22/20 19:29 Last Titration: 04/19/20 21:10 Dose: 35 mcg/kg/min, 12.4 mls/hr Documented by: [id number] Titration: 04/19/20 21:00 Dose: 30 mcg/kg/min, 10.6 mls/hr Documented by: [id number] Titration: 04/19/20 20:50 Dose: 25 mcg/kg/min, 8.9 mls/hr Documented by: [id number] Titration: 04/19/20 20:40 Dose: 20 mcg/kg/min, 7.1 mls/hr Documented by: [id number] Titration: 04/19/20 20:25 Dose: 15 mcg/kg/min, 5.3 mls/hr Documented by: [id number] Titration: 04/19/20 19:37 Dose: 10 mcg/kg/min, 3.5 mls/hr Documented by: [id number] Admin: 04/19/20 19:30 Dose: 5 mcg/kg/min, 1.8 mls/hr Documented by: [id number] Cosigned by: [id number] Famotidine 20 mg/ Syringe 5 mls @ 2.5 mls/min IV Q12H AKOSUA Stop: 05/19/20 20:59 Last Admin: 04/19/20 21:55 Dose: 2.5 mls/min Documented by: [id number] Sodium Chloride (Nss 1000ml) 1,000 mls @ 80 mls/hr IV .[id number] AKOSUA Stop: 05/19/20 20:47 Last Admin: 04/19/20 22:09 Dose: 80 mls/hr Documented by: [id number] Discontinued Medications Fentanyl Citrate (Fentanyl Citrate) Confirm Administered Dose 200 mcg .ROUTE .STK-MED ONE Stop: 04/19/20 20:16 Last Increment: 04/19/20 21:55 Dose: 150 mcg Documented by: [id number] Sodium Chloride (Nss 1000ml) 1,000 mls @ 999 mls/hr IV .Q1H1M ONE Stop: 04/19/20 20:00 Last Infusion: 04/19/20 19:37 Dose: 0 mls/hr Documented by: [id number] Admin: 04/19/20 19:25 Dose: 999 mls/hr Documented by: [id number] Magnesium Sulfate/Dextrose (Magnesium Sulfate / D5w) 1 gm in 100 mls @ 50 mls/hr IV ONE ONE Stop: 04/19/20 21:04 Last Infusion: 04/19/20 20:39 Dose: 0 mls/hr Documented by: [id number] Admin: 04/19/20 19:25 Dose: 50 mls/hr Documented by: [id number] Aztreonam 1,000 mg/ Dextrose 110 mls @ 100 mls/hr IV Q8H AKOSUA; Protocol Stop: 04/26/20 21:59 Last Admin: 04/19/20 22:10 Dose: 100 mls/hr Documented by: [id number] Miscellaneous () 1 ea N/A NOW STA Stop: 04/19/20 18:55 Last Admin: 04/19/20 19:31 Dose: Not Given Documented by: [id number] Piperacillin Sod/Tazobactam Sod (Zosyn) Confirm Administered Dose 4.5 gm .ROUTE .STK-MED ONE Stop: 04/19/20 20:14 Last Admin: 04/19/20 20:39 Dose: Not Given Documented by: [id number] Propofol (Diprivan) Confirm Administered Dose 1,000 mg IV .STK-MED ONE Stop: 04/19/20 19:02 Last Admin: 04/19/20 19:31 Dose: Not Given Documented by: [id number] Critical Care Time I have personally spent greater than 30 minutes of critical care time in the direct management of this patient. This includes bedside care, interpretation of diagnostic studies, and testing, discussion with consultants, patient, and family members, and other required patient management activities. This 30 minutes is in excess of all separately billable procedures. Medical Decision Making Differential Diagnosis Cardiac ischemia, aortic dissection, pulmonary embolism, pneumothorax, pneumonia, pericarditis, myocarditis, esophageal rupture, GERD, cholecystitis, pancreatitis, musculoskeletal, as well as other pathologies. Medical Records Attestation: I reviewed the patient's medical records. Home Medications Current Medication List: was personally reviewed by me Laboratory Data Attestation: I reviewed the patient's lab results. Result diagrams: 04/19/20 18:50 04/19/20 20:03 Lab Results 04/19/20 04/19/20 04/19/20 Range/Units 18:50 18:50 18:50 WBC 7.90 (4.8-10.8) K/uL RBC 4.15 L (4.2-5.4) M/uL Hgb 13.4 (12.0-16.0) g/dL Hct 40.6 (37-47) % MCV 97.8 (80-100) fL MCH 32.3 (25-34) pg MCHC 33.0 (32-36) g/dL RDW Std Deviation 45.8 (36.4-46.3) fL RDW Coeff of Onel 12.7 (11.5-14.5) % Plt Count 250 (130-400) K/uL MPV 9.6 (7.4-10.4) fL Neutrophils % (Manual) 36.5 % Lymphocytes % (Manual) 25.2 % Reactive Lymphs % (Man) 26.1 % Monocytes % (Manual) 6.1 % Eosinophils % (Manual) 4.3 % Basophils % (Manual) 0.9 % Myelocytes % (Man) 0.9 % Neutrophils # (Manual) 2.88 (1.4-6.5) K/uL Total Absolute Neuts 2.88 (1.4-6.5) K/uL Lymphocytes # (Manual) 1.99 (1.2-3.4) K/uL Reactive Lymphs # 2.06 K/uL Total Abs Lymphocytes 4.05 H (1.2-3.4) K/uL Monocytes # (Manual) 0.48 (0.11-0.59) K/uL Eosinophils # (Manual) 0.34 (0-0.5) K/uL Basophils # (Manual) 0.07 (0-0.2) K/uL Myelocytes # (Manual) 0.07 H (0-0) K/uL Toxic Vacuolation 1+ Tear Drop Cells 2+ Echinocytes 1+ PT 10.5 (9.0-12.0) Seconds INR 1.0 (0.9-1.1) APTT 23.1 (21.0-31.0) Seconds PTT Ratio 0.8 Sodium 137 (136-145) mmol/L Potassium (3.5-5.1) mmol/L Chloride 105 (98-107) mmol/L Carbon Dioxide 16 L (21-32) mmol/L Anion Gap 16.0 H (3-11) BUN 18 (7-18) mg/dl Creatinine 1.23 H (0.6-1.2) mg/dl Est Cr Clr Drug Dosing Not Reportable Est GFR ( Amer) 57.2 Est GFR (Non-Af Amer) 49.3 BUN/Creatinine Ratio 14.2 (10-20) Glucose 270 H (70-99) mg/dl Calcium 8.5 (8.5-10.1) mg/dl Total Bilirubin 1.2 H (0.2-1) mg/dl AST (15-37) U/L ALT 30 (12-78) U/L Alkaline Phosphatase 62 (45-117) U/L Total Creatine Kinase (26-192) U/L CK-MB (CK-2) < 1.0 (0.5-3.6) ng/ml Troponin I 0.023 (0-0.045) ng/ml Total Protein 7.6 (6.4-8.2) gm/dl Albumin 3.8 (3.4-5.0) gm/dl Globulin 3.8 (2.5-4.0) gm/dl Albumin/Globulin Ratio 1.0 (0.9-2) Lipase 348 (73-393) U/L Urine Color Urine Appearance (Clear) Urine pH (4.5-7.5) Ur Specific [place] (1.000-1.030) Urine Protein (Negative) Urine Glucose (UA) (Negative) Urine Ketones (Negative) Urine Blood (Negative) Urine Nitrite (Negative) Urine Bilirubin (Negative) Urine Urobilinogen (Negative) Ur Leukocyte Esterase (Negative) Urine WBC (Auto) (0-5) /hpf Urine RBC (Auto) (0-4) /hpf U Hyaline Cast (Auto) (0-5) /lpf U Epithel Cells (Auto) (0-5) /lpf Urine Bacteria (Auto) (Negative) Ur Renal Epithelial Cell 04/19/20 Range/Units 19:13 WBC (4.8-10.8) K/uL RBC (4.2-5.4) M/uL Hgb (12.0-16.0) g/dL Hct (37-47) % MCV (80-100) fL MCH (25-34) pg MCHC (32-36) g/dL RDW Std Deviation (36.4-46.3) fL RDW Coeff of Onel (11.5-14.5) % Plt Count (130-400) K/uL MPV (7.4-10.4) fL Neutrophils % (Manual) % Lymphocytes % (Manual) % Reactive Lymphs % (Man) % Monocytes % (Manual) % Eosinophils % (Manual) % Basophils % (Manual) % Myelocytes % (Man) % Neutrophils # (Manual) (1.4-6.5) K/uL Total Absolute Neuts (1.4-6.5) K/uL Lymphocytes # (Manual) (1.2-3.4) K/uL Reactive Lymphs # K/uL Total Abs Lymphocytes (1.2-3.4) K/uL Monocytes # (Manual) (0.11-0.59) K/uL Eosinophils # (Manual) (0-0.5) K/uL Basophils # (Manual) (0-0.2) K/uL Myelocytes # (Manual) (0-0) K/uL Toxic Vacuolation Tear Drop Cells Echinocytes PT (9.0-12.0) Seconds INR (0.9-1.1) APTT (21.0-31.0) Seconds PTT Ratio Sodium (136-145) mmol/L Potassium (3.5-5.1) mmol/L Chloride (98-107) mmol/L Carbon Dioxide (21-32) mmol/L Anion Gap (3-11) BUN (7-18) mg/dl Creatinine (0.6-1.2) mg/dl Est Cr Clr Drug Dosing Est GFR ( Amer) Est GFR (Non-Af Amer) BUN/Creatinine Ratio (10-20) Glucose (70-99) mg/dl Calcium (8.5-10.1) mg/dl Total Bilirubin (0.2-1) mg/dl AST (15-37) U/L ALT (12-78) U/L Alkaline Phosphatase (45-117) U/L Total Creatine Kinase (26-192) U/L CK-MB (CK-2) (0.5-3.6) ng/ml Troponin I (0-0.045) ng/ml Total Protein (6.4-8.2) gm/dl Albumin (3.4-5.0) gm/dl Globulin (2.5-4.0) gm/dl Albumin/Globulin Ratio (0.9-2) Lipase (73-393) U/L Urine Color Yellow Urine Appearance Clear (Clear) Urine pH 5.5 (4.5-7.5) Ur Specific [place] 1.019 (1.000-1.030) Urine Protein 2+ H (Negative) Urine Glucose (UA) Negative (Negative) Urine Ketones 1+ H (Negative) Urine Blood Trace H (Negative) Urine Nitrite Negative (Negative) Urine Bilirubin Negative (Negative) Urine Urobilinogen Negative (Negative) Ur Leukocyte Esterase Negative (Negative) Urine WBC (Auto) 1-5 (0-5) /hpf Urine RBC (Auto) 5-10 H (0-4) /hpf U Hyaline Cast (Auto) 10-30 H (0-5) /lpf U Epithel Cells (Auto) >30 H (0-5) /lpf Urine Bacteria (Auto) Negative (Negative) Ur Renal Epithelial Cell Not Reportable Imaging Data Radiologist's Impression: [place], [place] [phone] XRay Report Patient: Lisa BENITES Date: 04/19/20 MR#: [id number]: [address] [place] [address] Acct ID:[id number]: Date: [address] Zip: [place] [address] Age: 54Location: ED Sex: F Room/Bed: Att Phy:Diagnosis: comprimised airway Esther Phy: Colin Gonzalez MDService Date: 04/19/20 Fam Phy:Interpreting Phy: Jomar Cutler MD Admit Phy: Ordering Phy: Pedro Colon MD cc: ~ XR chest 1V portable CLINICAL HISTORY: Chest Pain dyspnea COMPARISON STUDY: 02/21/2018 FINDINGS: Endotracheal tube positioned origin right main stem bronchus. This should be pulled back several centimeters. Mild volume loss right pulmonary apex. Lungs otherwise appear clear. Diaphragms are smooth. IMPRESSION: 1. Endotracheal tube positioned at the origin of the right mainstem bronchus. 2. This should be pulled back several centimeters. 3. Developing atelectasis right pulmonary apex. ACT 112: Negative or not required by law. The above report was generated using voice recognition software. It may contain grammatical, syntax or spelling errors. Electronically signed by: Jomar Cutler M.D. 04/19/2020 7:05 PM Dictated: 04/19/201902 Transcribed: 04/19/201902 ECG Data Attestation: I personally reviewed and interpreted this ECG as follows: Indication: + altered mental status Rate (beats per minute): 102 Rhythm: + sinus tachycardia ECG Glasgow: + Normal ECG ST segments: no ST depression and no ST elevation ECG Findings: + Q waves (Anterior) Comparison ECG Date: from (07/29/2019) Change: the following changes noted (New septal infarct) MDM Narrative Patient was seen and evaluated as above in room A1. Review was performed of nursing notes and vital signs. I did review pertinent previous visits and patient history. After obtaining a thorough history and physical examination the above work up was performed. This is a 54-year-old female who arrives unresponsive intubated after choking episode and CPR. The patient was originally unresponsive therefore a code Arctic was initiated however the patient eventually woke up and was able to follow commands. At that point the code Arctic was canceled. I then discussed the case with the deck engine operator who agreed to bronc the patient. I also discussed the case with the hospitalist who asked to agree to admit the patient. The patient was found to have grossly elevated troponin. An order was placed for continuous cardiac monitoring. The monitor shows a rate of 99 with Normal Sinus rhythm. GCS: 3I The patient was evaluated during the global COVID-19 pandemic, and that diagnosis was suspected/considered upon their initial presentation. Their evaluation, treatment and testing was consistent with current guidelines for patients who present with complaints or symptoms that may be related to COVID- 19. Impression & Plan Acute airway obstruction Discharge Plan Visit Data *Final* Discharge Date/Time: 04/19/20 20:38 Chief Complaint: Choking Stated Complaint: comprimised airway ED Provider: Pedro Colon Discharge Problem: Acute airway obstruction Patient Disposition: Admitted As Inpatient Discharge Instructions Interventions: ED Discharge Assessment Last Done: 04/19/20 20:38
[2020-04-19 23:50] LABS: iSTAT Arterial Blood Gas HCO3 20 meg/L (19-24); iSTAT Arterial Blood Gas pCO2 32 mmHg (35-46); iSTAT Arterial Blood Gas pH 7.41 (7.35-7.45); iSTAT Arterial Blood Gas pO2 235 mmHg (80-95); iSTAT Carbon Dioxide 21 mmol/L (24-31); iSTAT FiO2 60 %; iSTAT Site R Radial
[2020-04-20] MEDS: CIPROFLOXACIN / D5W 400 MG/200 ML BAG IV SCH ×2 (02:17→13:30)
[2020-04-20] MEDS ORDERED: HEPARIN SODIUM/DEXTROSE 25,000 UNITS/500 ML BAG IV SCH (02:45)
[2020-04-20] MEDS ORDERED: HEPARIN IV BOLUS 5,000 UNITS in SYRINGE 0 ML IV ONE (04:00)
[2020-04-20 04:23] LABS: Basophils # (auto) 0.01 K/uL (0-0.2); Basophils % (auto) 0.1 %; Eosinophils # (auto) 0.05 K/uL (0-0.5); Eosinophils % (auto) 0.6 %; Hematocrit (blood only) 35.8 % (37-47); Hemoglobin 11.9 g/dL (12.0-16.0); Immature Granulocytes # (auto) 0.01 K/uL (0.00-0.02); Immature Granulocytes % (auto) 0.1 %; Lymphocytes # (auto) 1.03 K/uL (1.2-3.4); Lymphocytes % (auto) 12.7 %; Mean Corpuscular Hemoglobin 31.6 pg (25-34); Mean Corpuscular Hgb Conc 33.2 g/dL (32-36); Mean Corpuscular Volume 95.2 fL (80-100); Mean Platelet Volume 9.2 fL (7.4-10.4); Monocytes # (auto) 0.91 K/uL (0.11-0.59); Monocytes % (auto) 11.2 %; Neutrophils % (auto) 75.3 %; Platelet Count 167 K/uL (130-400); RDW Coefficient of Variation 12.8 % (11.5-14.5); RDW Standard Deviation 44.5 fL (36.4-46.3); Red Blood Count 3.76 M/uL (4.2-5.4); White Blood Count 8.11 K/uL (4.8-10.8)
[2020-04-20] MEDS ORDERED: ACETAMINOPHEN 1,000 MG/100 ML VIAL IV PRN (04:40)
[2020-04-20 04:42] LABS: Partial Thromboplastin Ratio 0.8; Partial Thromboplastin Time 23.2 Seconds (21.0-31.0); Prothrombin Time 10.8 Seconds (9.0-12.0)
[2020-04-20 04:53] LABS: Magnesium 2.2 mg/dl (1.8-2.4); Troponin I 8.18 ng/ml (0-0.045)
[2020-04-20] MEDS: ACETAMINOPHEN 1000 MG/100 ML IV IV PRN ×2 (05:12→22:58)
[2020-04-20 06:05] LABS: iSTAT Allen Test Pass; iSTAT Arterial Blood Gas HCO3 19 meg/L (19-24); iSTAT Arterial Blood Gas pCO2 26 mmHg (35-46); iSTAT Arterial Blood Gas pH 7.47 (7.35-7.45); iSTAT Arterial Blood Gas pO2 99 mmHg (80-95); iSTAT Carbon Dioxide 20 mmol/L (24-31); iSTAT FiO2 30 %; iSTAT Site R Radial
[2020-04-20 07:42] LABS: BUN Creatinine Ratio 15.5 (10-20); Calcium 7.9 mg/dl (8.5-10.1); Creatinine Clr Calc Pharmacy 78.9 ml/min; Est GFR (Non-African American) 89.7; Potassium 3.6 mmol/L (3.5-5.1)
[2020-04-20] MEDS ORDERED: MoRPHine SULFATE 2 MG/ML CARP IV PRN ×2 (08:00)
[2020-04-20] MEDS ORDERED: SODIUM CHLORIDE 0.9% 1000ML 500 ML IV ONE (09:13)
[2020-04-20] MEDS ORDERED: CLOPIDOGREL BISULFATE 75 MG TAB PO ONE (09:24)
[2020-04-20] MEDS ORDERED: ASPIRIN 81 MG CHEW PO STA (09:24)
--- NOTE | 2020-04-20 09:26 | XRay Report ---
SINGLE VIEW CHEST CLINICAL HISTORY: Respiratory failure. FINDINGS: An AP, portable, upright chest radiograph is compared to study dated 04/19/2020. The examina tion is degraded by portable technique and patient rotation. An endotracheal tube is repositioned. Th e tip now projects 2.5 cm above the willow. The cardiomediastinal silhouette is unremarkable. Chronic interstitial thickening is similar to previous. Atelectasis is noted at the lung bases. Trace pleura l effusions are suspected. No pneumothorax is seen. The skeletal structures are osteopenic. The bony thorax is grossly intact. IMPRESSION: 1. The endotracheal tube has been repositioned as above. 2. Suspect trace pleural effusions. 3. No airspace consolidation is seen typical for pneumonia. ACT 112: Negative or not required by law. Electronically signed by: Alejandro Pepper M.D. 04/20/2020 9:24 AM
[2020-04-20] MEDS: FAMOTIDINE 20 MG in SYRINGE 3 ML IV SCH ×2 (09:38→20:21)
[2020-04-20] MEDS: metroNIDAZOLE 500 MG/100 ML BAG IV SCH ×3 (09:38→23:40)
[2020-04-20] MEDS ORDERED: fentaNYL citrate 100 MCG/2 ML VIAL ONE (10:01)
--- NOTE | 2020-04-20 10:19 | Critical Care Progress Note ---
Date of Service April 20, 2020 Assessment & Plan (1) Acute airway obstruction: Reason Critically Ill: 54-year-old female with acute airway obstruction requiring intubation and emergent bronchoscopy, remaining intubated overnight Neuro - Sedation: Propofol Neurological statuspatient is awake alert oriented. Answering questions appropriately moving all extremities. Cardiac - Elevated troponinwould suspect this is likely demand ischemia following prolonged hypoxia, also patient did receive CPR in the field -Troponin did elevate to 13 but are trending down. -No ST changes on EKG -Continue to monitor on telemetry Cardiac arrest?Patient was in a restaurant choking on food and lost consciousness, CPR was started by police officers in the restaurant -Questionable whether patient was pulseless, as on arrival by EMS she had pulse, no shockable rhythm 2D echo does show some akinesia of septal wall. This likely is secondary to chest compressions as per the cardiology. No need to treat as ACS. Just monitor Respiratory - Acute airway obstructionreportedly started choking on a piece of steak, see HPI for details -Intubated with a 6.0 ETT in field, exchanged to a 7 ETT to allow for emergent bronc -S/p removal of foreign body(steak) on 04/19/2020 -Respiratory status doing okay GI - Diverticulitis POAaccording to patient's daughter she was taking ciprofloxacin 500 twice daily, and Flagyl for diverticulitis -Does not appear to be an acute issue at this time, will continue outpatient regimen for now in IV form as patient is intubated N.p.o. RENAL/LYTES - AKIcreatinine 1.23 with previous baseline 0.8 -Improved -Monitor BUN/creatinine - Foleystrict I's and O's ENDO - No history diabetes or thyroid disease ICU hyperglycemic protocol HEME - H&H stable, monitor ID - No indication for acute infection at this time, will continue outpatient Flagyl and Cipro for diverticulitis LINES/IV ACCESS - PIV's, ETT DVT PROPHYLAXIS - SCDs Plan: We will plan to extubate the patient with bronchoscopy bedside to make sure the foreign body which is anterior to the ETT does not fall into the airway when taking the tube out. Patient understands and has consented for the procedure. We will start the patient. Patient is successfully extubated. BROOKE Nevarez later today. Patient did spike fever of 38.4. She has no clear source of infection chest x- ray is clean. We will continue with outpatient antibiotic for her diverticulitis. She is not complaining of any abdominal pain right now. Cardiology does not want any ACS protocol for the patient thinking that this is likely from the chest compression that she got. We will just trend troponin and serial EKGs. Patient blood pressure is on the lower side but she is alert not complaining of any dizziness. We will just monitor and give fluids as needed. I have personally spent 37 minutes of critical care time in the direct management of this patient. This is a life/limb threatening event. This includes time spent evaluating patient, direct bedside care, chart review, placing o rders, interpretation of diagnostic studies, discussion with consultants, patient, and family members, as well as other required patient management activities. This time is exclusive of all separately billable procedures, and teaching time and separate from and in addition to any other critical care service time. Thank you for allowing us to participate in the care of this patient. Please refer to my attending physician's documentation for any further recommendations. (2) On mechanically assisted ventilation: (3) Asthma: (4) Migraine: (5) Diverticulitis: (6) Elevated troponin: Admission and Anticipated Discharge Date Admission Date: April 19, 2020 Subjective Patient seen and examined at bedside. No acute distress, no adverse events overnight. Patient is awake alert answering all questions appropriately. She is writing on paper on the board whenever she has any questions. Denies any chest pain, no dizziness. On propofol of 5 at the time of examination Review of Systems Review of Systems: All systems reviewed & are unremarkable except as noted in HPI & below Physical Exam Physical Exam: Constitutional: No acute distress HEENT: EOMI, PERRLA, positive ETT Respiratory system: Good air entry bilaterally, no wheeze, no rhonchi, no crackles CVS: S1-S2 positive, no murmurs or gallops Abdomen: Soft, nontender, nondistended, positive bowel sounds x4 Extremities: +2 pulses bilaterally radialis/ dorsalis pedis, no cyanosis, no edema Neuro: Awake alert oriented x3 Psych: Normal mood and affect G/U: Positive Nevarez Skin: no rashes, warm and dry Lymphatic: no cervical or axillary lymphadenopathy Results & Data Results & Data ([facility]) Vital Signs (Past 12 Hours) Vital Signs Temp Pulse Resp BP Pulse Ox 06/21/20 07:00 90 16 100 04/20/20 05:45 105 H 16 100 04/20/20 05:31 102 H 89/58 L 100 04/20/20 05:16 103 H 95/61 L 100 04/20/20 05:01 100 H 96/68 L 100 04/20/20 05:00 98 H 100 04/20/20 04:46 97 H 85/60 L 100 04/20/20 04:31 99 H 93/60 L 100 04/20/20 04:16 101 H 94/62 L 100 04/20/20 04:01 99 H 89/61 L 100 04/20/20 04:00 38.4 C H 98 H 100 04/20/20 03:45 100 H 93/66 L 100 04/20/20 03:30 107 H 95/71 L 100 04/20/20 03:15 94 H 91/70 L 100 04/20/20 03:01 95 H 91/59 L 100 04/20/20 03:00 94 H 100 04/20/20 02:45 95 H 93/62 L 100 04/20/20 02:30 101 H 89/63 L 100 04/20/20 02:15 96 H 90/64 L 100 04/20/20 02:00 98 H 87/62 L 100 04/20/20 01:45 91 H 86/64 L 100 04/20/20 01:35 96 H 18 99 04/20/20 01:30 90 83/60 L 100 04/20/20 01:15 87 79/60 L 100 04/20/20 01:01 91 H 85/57 L 100 04/20/20 01:00 88 100 04/20/20 00:45 84 81/55 L 100 04/20/20 00:31 99 H 90/57 L 100 04/20/20 00:15 93 H 86/63 L 100 04/20/20 00:01 37.9 C H 84 100 04/20/20 00:00 82 80/61 L 100 04/19/20 23:45 85 81/57 L 100 04/19/20 23:35 81 20 100 04/19/20 23:30 85 81/60 L 100 04/19/20 23:15 83 83/60 L 100 04/19/20 23:02 87 100 04/19/20 23:01 99 H 95/65 L 100 04/19/20 22:45 85 90/70 L 100 04/19/20 22:30 83 95/71 L 100 04/20/20 04:09 04/20/20 07:03 Coding Level of Care Code Critical Care 1st 30-74 mins Diagnoses Acute airway obstruction J98.8 On mechanically assisted ventilation Z99.11 Asthma J45.909 Migraine G43.909 Diverticulitis K57.92 Elevated troponin R79.89 Time Spent (min) 37
--- NOTE | 2020-04-20 10:20 | XCELERA ---
[id number]
--- NOTE | 2020-04-20 11:18 | Procedure Note ---
Procedure Note: Bronchoscopy Procedure PREOPERATIVE DIAGNOSIS: Foreign body between the ET tube and the trachea POSTOPERATIVE DIAGNOSIS: Foreign body between the ET tube and the trachea PROCEDURE PERFORMED: Flexible fiberoptic bronchoscopy with [bronchoalveolar lavage, transbronchial biopsies, brushings] COMPLICATIONS: None. INDICATION: As above PROCEDURE: After obtaining an informed consent from the patient. The patient had appropriate oxygen, blood pressure, heart rate, and respiratory rate monitoring applied and monitored continuously throughout the procedure. Patient was intubated. 100% FiO2 on the ventilator was set. Patient was given total of 75 MCG of fentanyl and 50 mg of propofol during the procedure. The bronchoscope was again advanced of the ET tube foreign body was appreciated around 18 cm leydi on the ETT anteriorly. The bronchoscope was placed at the end of the ETT but the fenestrations are in the tube was slowly retracted to make sure I can catch if any foreign body is falling down. When the ETT was totally retracted there was no foreign body found to be falling into the trachea. On suctioning of the mouth after the ET tube was taken out a small piece of foreign body high likelihood of steak was noticed. I still went in and did bronchoscopy to make sure there is no foreign body that we missed. The trachea appeared slightly erythematous.The bronchoscope was then advanced through the willow, which was sharp. The scope was then advanced into the right main stem and each segment, subsegement in the right upper lobe, right middle lobe and right lower lobe were visualized. There was minimal amount of bloody secretions appreciated which were suctioned out.. There were no finding of for eign body in any of the subsegments on the right side. The bronchoscope was subsequently withdrawn and advanced into the left mainstem. Again, each segment and subsegment was well visualized. No specific masses or other lesions were identified throughout the tracheobronchial tree on the left. There was minimal amount of clear secretion which was suctioned. There was no evidence of foreign body in any of the subsegments of the left side The bronchoscope was then wedged in the [] and bronchoalveolar lavage samples were obtained. 120 ml of saline was instilled and [] ml of fluid was aspirated back.The bronchoscope was withdrawn and the area was suctioned clear. The bronchoscope was then withdrawn to the mainstem. The area was suctioned clear. The patient tolerated the procedure well without evidence of desaturation or complications. Recommendations: No foreign body appreciated. The likely foreign body which was appreciated on bron yesterday between the ETT and the trachea was a piece of steak. Even on the chest x-ray today there was no radiopaque foreign body appreciated in the trachea around the ETT. Chest x-ray in the a.m.
[2020-04-20] MEDS ORDERED: ONDANSETRON INJ 2 MG/ML 2 ML VIAL ONE (11:29)
--- NOTE | 2020-04-20 12:04 | Cardiology Consultation ---
Date of Consultation April 20, 2020 Assessment & Plan (1) Elevated troponin: -troponin I level peaked at 13.1 and is trending down. -CK isoenzyme was 88 at time of presentation. -suspect this elevation is related to chest compressions. -do not suspect an acute coronary syndrome. (2) Abnormal EKG: -transient anterolateral ST segment changes. (3) Left ventricular dysfunction: -mildly reduced LVEF with a proximal mid anterior and anteroseptal wall motion abnormality. -suspect this could be related to mechanical injury from chest compressions. -would not treat as an acute coronary syndrome at this time. History of Present Illness Attending Physician: Rafiq Xie MD History of Present Illness Mrs. Betancourt is a 54-year-old male female admitted yesterday after a choking episode which required CPR and mechanical ventilation. With her troponin I level was elevated and therefore, this consultation was ordered. The the patient was in her usual state of health until last evening while dining at [employer]. The patient began choking on a piece of steak. A family member attempted the Heimlich maneuver, however, the patient then went unresponsive. According to the record, CPR was initiated by police. The human capital consultant a rrived next and intubated the patient. On arrival here, the patient required an emergent bronchoscopy to retrieve the food matter. The patient's initial troponin I level was elevated 7.01 in increased to 13.1. Currently it is down to 8.18. There was no history of pre morbid cardiac symptoms according to the record. The patient is currently intubated and unable to give a history. Review of her record notes no evidence of cardiac disease. Past medical and surgical history 1. GERD 2. Migraine headaches 3. Fibroids 4. Uterine ablation Social history and lives with her No tobacco or alcohol Family history Father had a CABG at age 70. Mother had breast cancer Review of systems Unobtainable Allergies Allergy/AdvReac Type Severity Reaction Status Date / Time latex Allergy Mild RASH, Verified 04/19/20 19:39 BLISTERS meperidine Allergy Unknown UNKNOWN Unverified 04/19/20 19:39 peanut oil Allergy Unknown UNKNOWN Unverified 04/19/20 19:39 Penicillins Allergy Unknown UNKNOWN Unverified 04/19/20 19:39 progesterone Allergy Unknown UNKNOWN Unverified 04/19/20 19:39 clindamycin Allergy Rash Verified 06/20/20 19:39 ketorolac [From Toradol] AdvReac DOES NOT Verified 04/19/20 19:41 RESPOND WELL DUST & MOLD Allergy EXACERBATION Uncoded 04/19/20 19:41 OF ASTHMA Home Medications Home Medications Medication Instructions Recorded Confirmed Type rizatriptan [Maxalt] 10 mg PO UD PRN 06/08/19 04/19/20 History Gin Caps 2 tab PO BID 04/19/20 04/19/20 History Vitamin Regimen 0 tabs PO DAILY 04/19/20 History multivitamin 1 tab PO DAILY 04/19/20 04/19/20 History Probiotic Formula (inulin) 04/20/20 History ascorbic acid (vitamin C) [C-1000] 04/20/20 History bkxnwpw-wdfuaumcdupjn-uoltakfv 1 tab PO Q6H PRN 04/20/20 04/20/20 History [Excedrin Migraine] budesonide [Rhinocort Allergy] 2 spray INTRANASAL BID 04/20/20 04/20/20 History ciprofloxacin HCl [Cipro] 500 mg PO BID 04/20/20 04/20/20 History green tea leaf ext-green tea tab PO 04/20/20 History [Green Tea Complex] metronidazole 500 mg PO BID 04/20/20 04/20/20 History selenium 200 mcg PO DAILY 04/20/20 04/20/20 History Patient History Medical History Asthma Migraine (Chronic) Surgical History No pertinent past surgical history Family History Other No significant family history Social History Preferred Language: Faroese Manager Hair Required: No Beliefs That Will Affect Care: None Current Living Situation: Spouse current occupational status: employed Other Information That Helps Us Care for You: No Feels Safe at Home: Yes Smoking Status: Never smoker Hx Alcohol Use: No Hx Substance Use: No Physical Exam Physical Exam: In general this is a well-developed well-nourished white female lying supine in bed on a ventilator. HEENT exam notes an [address] Neck is supple with full carotid upstrokes. No obvious bruits. Jugular venous pressure is difficult to assess. Cardiovascular exam reveals a regular rhythm with distant heart sounds. No obvious murmurs. Lungs are clear anteriorly. Abdomen is soft without bruits. Extremities reveal intact radial artery pulses bilaterally. There is no peripheral edema. Results & Data ([facility]) Vital Signs (Past 12 Hours) Vital Signs Temp Pulse Resp BP Pulse Ox 04/20/20 07:00 90 16 100 04/20/20 05:45 105 H 16 100 04/20/20 05:31 102 H 89/58 L 100 04/20/20 05:16 103 H 95/61 L 100 04/20/20 05:01 100 H 96/68 L 100 04/20/20 05:00 98 H 100 04/20/20 04:46 97 H 85/60 L 100 04/20/20 04:31 99 H 93/60 L 100 04/20/20 04:16 101 H 94/62 L 100 04/20/20 04:01 99 H 89/61 L 100 04/20/20 04:00 38.4 C H 98 H 100 04/20/20 03:45 100 H 93/66 L 100 04/20/20 03:30 107 H 95/71 L 100 04/20/20 03:15 94 H 91/70 L 100 04/20/20 03:01 95 H 91/59 L 100 04/20/20 03:00 94 H 100 04/20/20 02:45 95 H 93/62 L 100 04/20/20 02:30 101 H 89/63 L 100 04/20/20 02:15 96 H 90/64 L 100 04/20/20 02:00 98 H 87/62 L 100 04/20/20 01:45 91 H 86/64 L 100 04/20/20 01:35 96 H 18 99 04/20/20 01:30 90 83/60 L 100 04/20/20 01:15 87 79/60 L 100 04/20/20 01:01 91 H 85/57 L 100 04/20/20 01:00 88 100 04/20/20 00:45 84 81/55 L 100 04/20/20 00:31 99 H 90/57 L 100 04/20/20 00:15 93 H 86/63 L 100 04/20/20 00:01 37.9 C H 84 100 04/20/20 00:00 82 80/61 L 100 Laboratory Results CBC notes hemoglobin of 11.9, hematocrit 35.8, white count 8.11, and platelet count of 119013. Electrolytes notice sodium 130, potassium 3.6, chloride 109, bicarb 23, BUN 12, creatinine 0.75, glucose of 98. Troponin I levels are listed above. CK on presentation was 88. Diagnostic Findings Initial EKG noted sinus tachycardia and anterolateral ST depression. Follow-up tracing noted normal sinus rhythm and an anteroseptal SC pattern. library monitor is benign. Echocardiogram noted mild left ventricle dysfunction with ejection fraction of 40% and an anterior and anteroseptal wall motion abnormality. PG Care Time/CCT Total # of Minutes Spent Total Time Spent with Patient: Total time spent is greater than 50% in coordination of care (as documented) at patient's floor/unit and/or counseling patient: Coding Level of Care Code 53960 Inpt Consult Level 4 Diagnoses Elevated troponin R79.89 Abnormal EKG R94.31 Left ventricular dysfunction I51.9
[2020-04-20] MEDS: SODIUM CHLORIDE 0.9% 1000ML 1,000 ML IV SCH (13:44)
--- NOTE | 2020-04-20 14:26 | Electrocardiogram Report ---
Test Reason : Blood Pressure : / mmHG Vent. Rate : 102 BPM Atrial Rate : 102 BPM P-R Int : 174 ms QRS Dur : 078 ms QT Int : 382 ms P-R-T Axes : 079 074 092 degrees QTc Int : 497 ms Sinus tachycardia Septal infarct , age undetermined Abnormal ECG When compared with ECG of 29-JUL-2019 16:21, Septal infarct is now Present ST now depressed in Anterior leads Confirmed by Kamlesh Garay ([id number]) on 04/20/2020 2:25:57 PM Referred By: REFERRED SELF Confirmed By:Kamlesh Garay
--- NOTE | 2020-04-20 14:29 | Electrocardiogram Report ---
Test Reason : Blood Pressure : / mmHG Vent. Rate : 097 BPM Atrial Rate : 097 BPM P-R Int : 174 ms QRS Dur : 074 ms QT Int : 370 ms P-R-T Axes : 076 073 092 degrees QTc Int : 469 ms Normal sinus rhythm Low voltage QRS Septal infarct (cited on or before 19-APR-2020) Abnormal ECG When compared with ECG of 19-APR-2020 19:01, (unconfirmed) ST no longer depressed in Anterior leads T wave inversion no longer evident in Anterior leads Confirmed by Kamlesh Garay ([id number]) on 04/20/2020 2:29:18 PM Referred By: REFERRED SELF Confirmed By:Kamlesh Garay
--- NOTE | 2020-04-20 15:33 | Hospitalist Progress Note ---
Date of Service April 20, 2020 Assessment & Plan (1) Acute airway obstruction: Dorothy is a 54-year-old female with a past medical history of diverticulitis and no prior coronary artery disease who was eating steak at a restaurant when she aspirated and had a piece of food lodged in her airway causing her to experience respiratory failure with suspicion for cardiac arrest as noted below. She was intubated by EMS in the field. Foreign body (food) aspiration with subsequent respiratory failure requiring mechanical ventilation Status post flexible fiberoptic bronchoscopy with removal of food bolus in the right lower lobe via forceps recovery Patient awake, alert, and breathing well on vent this morning Patient passed weaning trial, successfully extubated No respiratory distress at present, stable Propofol weaned Elevated troponin, concern for cardiac arrest Received CPR by police in the field, had an intact pulse at time of EMS arrival. Patient was unconscious, unclear if she was pulseless. Troponin up trended to 13, now downtrending at 8. TTE shows mild akinesia of septal wall. Discussed with cardiology, possibly due to traumatic chest compressions. Cardiology consulted. Do not recommend acute coronary syndrome treatment, continue to monitor at this time. Diverticulitis Patient has a history of diverticulitis and was undergoing treatment prior to admission with Cipro/Flagyl Patient transiently placed on aztreonam on admission, converted back to Cipro/Flagyl IV Continue Cipro 400 mg IV twice daily, Flagyl 500 mg IV every 8 hours Patient with temperature of 38.4, continue diverticulitis treatment but differential includes potential aspiration pneumonia although suspicion is lower given no airspace opacities/consolidations appreciated on CXR. CLEO versus prerenal azotemia, resolved Mild creatinine elevation to 1.23 from baseline 0.8, suspect prerenal Normalized less than 1 today No sodium or potassium derangements BMP daily, Fluid support as below FEN GI: N.p.o. NSS 80 cc/h, ICU electrolyte protocol. DVT prophylaxis: SCDs Disposition: ICU (2) Abnormal EKG: (3) Left ventricular dysfunction: (4) Admitted to intensive care unit: (5) Elevated troponin: (6) On mechanically assisted ventilation: (7) Asthma: Admission and Anticipated Discharge Date Admission Date: April 19, 2020 Supervising Physician Co-Signing Physician Notes Attending attestation Pt seen and examined in concert with Dr. Estrada. In agreement with the documented findings as noted in the resident documentation with any exceptions or additions as noted here. Alert and conversant by hand sign and written message while intubated. Reports ongoing LLQ abdominal pain which is similar to previous episodes of diverticulitis, chest discomfort centrally, worse with pressure. On examination, S1/S2 nl RRR no MCG. Rhonchorous but overall CTAB. Abd TTP LLQ with nl BS Foreign body aspiration with ARF s/p bronchoscopy with clearance - extubation planned for today. Continue cipro/flagyl Elevated troponin s/p cardiac arrest - cardiology consultation - monitor, likely mechanical contusion 2/2 CPR in the field Diverticulitis, acute on chronic - continue cipro/flagyl , monitor for change in symptoms CLEO - trend BMP, hydration w/ NSS Else see resident documentation as noted. Aaron Thrasher is seen at the bedside this morning. She is intubated, but sedation is being weaned and she is alert and follows commands appropriately. She is able to communicate using a pen and paper. She indicates that she has a left lower quadrant abdominal ache similar to her diverticulitis in the past and is concerned that she could have diverticulitis again. She endorses tenderness overlying her sternum/ribs, denies other chest pain. She does not feel short of breath but endorses that the ETT is very uncomfortable. Denies fever/chills/sweats. Does not express other concerns at time of visit. Review of Systems Review of Systems: Unobtainable due to endotracheal tube (Limited by ETT, see HPI) Physical Exam Physical Exam: General: Alert, follows commands, communicates with pen and paper. Cooperative. HEENT: Atraumatic, normocephalic. Vision grossly intact, hearing grossly intact. Pulm: Endotracheal tube in place, on mechanical ventilation. CTAB A&P. - wheezes, -rales, -rhonchi. Symmetrical chest rise. No respiratory distress. Cardiac: RRR, -mrg. Radial pulses intact and symmetrical. Abdominal: Tender to palpation in left lower quadrant. Nondistended, soft, without rebound tenderness. Bowel sounds present. Extremities: Warm, dry. Radial and PT pulses intact bilaterally and symmetrical. Results & Data Results & Data ([facility]) Vital Signs (Past 12 Hours) Vital Signs Temp Pulse Resp BP Pulse Ox 04/20/20 07:00 90 16 100 04/20/20 05:45 105 H 16 100 04/20/20 05:31 102 H 89/58 L 100 04/20/20 05:16 103 H 95/61 L 100 04/20/20 05:01 100 H 96/68 L 100 04/20/20 05:00 98 H 100 04/20/20 04:46 97 H 85/60 L 100 04/20/20 04:31 99 H 93/60 L 100 04/20/20 04:16 101 H 94/62 L 100 04/20/20 04:01 99 H 89/61 L 100 04/20/20 04:00 38.4 C H 98 H 100 04/20/20 03:45 100 H 93/66 L 100 04/20/20 03:30 107 H 95/71 L 100 Resident Activity Tracking Resident Involvement: Resident Care Provided Care Provided: Adult [facility]
[2020-04-20] MEDS ORDERED: fentaNYL citrate 100 MCG/2 ML VIAL IV ONE (18:34)
[2020-04-20] MEDS: propofoL 1,000 MG/100 ML VIAL IV SCH (19:10)
[2020-04-21] MEDS: CIPROFLOXACIN / D5W 400 MG/200 ML BAG IV SCH (00:22)
[2020-04-21] MEDS: SODIUM CHLORIDE 0.9% 1000ML 1,000 ML IV SCH ×2 (02:28→08:19)
[2020-04-21 05:39] LABS: Hematocrit (blood only) 36.1 % (37-47); Hemoglobin 11.8 g/dL (12.0-16.0); Mean Corpuscular Hemoglobin 31.7 pg (25-34); Mean Corpuscular Hgb Conc 32.7 g/dL (32-36); RDW Standard Deviation 45.6 fL (36.4-46.3); Red Blood Count 3.72 M/uL (4.2-5.4); White Blood Count 8.08 K/uL (4.8-10.8)
[2020-04-21 05:40] LABS: Basophils # (auto) 0.01 K/uL (0-0.2); Basophils % (auto) 0.1 %; Eosinophils # (auto) 0.08 K/uL (0-0.5); Immature Granulocytes # (auto) 0.01 K/uL (0.00-0.02); Immature Granulocytes % (auto) 0.1 %; Lymphocytes # (auto) 1.41 K/uL (1.2-3.4); Lymphocytes % (auto) 17.5 %; Mean Platelet Volume 9.3 fL (7.4-10.4); Monocytes # (auto) 0.93 K/uL (0.11-0.59); Monocytes % (auto) 11.5 %; Neutrophils # (auto) 5.64 K/uL (1.4-6.5); Neutrophils % (auto) 69.8 %; Platelet Count 203 K/uL (130-400)
[2020-04-21 05:53] LABS: INR 1.1 (0.9-1.1); Partial Thromboplastin Time 26.6 Seconds (21.0-31.0); Prothrombin Time 11.5 Seconds (9.0-12.0)
[2020-04-21 06:05] LABS: BUN Creatinine Ratio 9.2 (10-20); Calcium 8.3 mg/dl (8.5-10.1); Creatinine Clr Calc Pharmacy 83.1 ml/min; Est GFR (African American) 109.3; Est GFR (Non-African American) 94.3; Potassium 3.6 mmol/L (3.5-5.1)
[2020-04-21] MEDS: ACETAMINOPHEN 1000 MG/100 ML IV IV PRN ×2 (06:28→15:17)
--- NOTE | 2020-04-21 07:51 | Hospitalist Progress Note ---
Date of Service April 21, 2020 Assessment & Plan (1) Acute airway obstruction: Dorothy is a 54-year-old female without underlying cardiopulmonary disease who was admitted on Tuesday after a witnessed choking episode at a local restaurant. Police performed CPR prior to EMS arrival. Patient was subsequently intubated by EMS in the field and directly admitted to ICU. 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 EKG strip from EMS did not show a shockable rhythm. Patient was unconscious, unclear if she was pulseless. Troponin up trended to 13, now downtrending at 8. - TTE shows mild akinesia of septal wall. - cardiology consulted: felt as though elevated trop secondary to traumatic chest compressions rather than ACS, recommend no ACS treatment Diverticulitis Patient has a history of diverticulitis and was undergoing treatment as outpatient prior to admission with Cipro/Flagyl Patient transiently placed on aztreonam on admission, converted back to Cipro/Flagyl PO CLEO versus prerenal azotemia, resolved Mild creatinine elevation to 1.23 from baseline 0.8, suspect prerenal Normalized to less than 1 - d/c IVF FEN GI: Regular diet, soft texture until video swallow DVT prophylaxis: SCDs; lovenox Disposition: Tele Code: Full (2) Abnormal EKG: (3) Left ventricular dysfunction: (4) Admitted to intensive care unit: (5) Elevated troponin: (6) On mechanically assisted ventilation: (7) Asthma: Admission and Anticipated Discharge Date Admission Date: April 19, 2020 Supervising Physician Co-Signing Physician Notes I personally examined the patient and verified all moser points of history and exam, discussed case, and agree with decision making with Dr Bay. still trouble w swallowing solids. vitals noted nad heent nc at mmm breathing unlabored no accessory muscles good effort. choking event/aspiration - now improved from event, still trouble swallowing - ?irritation from prior choking, ?irritation from ETT, both far more likely than actual dysphagia - but video swallow. diverticulitis - continue current abx. stable for transfer to medical. Subjective Patient successfully weaned on ventilator. No acute events overnight. Passed bedside swallowing study, although still reports dysphagia, particularly with meats Review of Systems Gastrointestinal: + dysphagia Physical Exam Constitutional: WD/WN, vitals as above Eyes: + anicteric sclerae ENMT: external ear and nose normal, oropharynx normal Neck: normal visual inspection Respiratory: normal respiratory effort, lungs clear to auscultation Auscultation: no crackles, no rales, no rhonchi and no wheezes Gastrointestinal (Abdomen): Inspection/Auscultation: abdomen normal to inspection Skin: no rashes, warm and dry Psychiatric: A+Ox3, euthymic affect Results & Data Results & Data ([facility]) Vital Signs (Past 12 Hours) Vital Signs Temp Pulse Resp BP Pulse Ox 04/21/20 05:02 97 H 24 97 04/21/20 04:57 101/62 04/21/20 03:50 37.2 C 72 12 101/62 92 04/21/20 02:50 78 12 104/59 L 92 04/21/20 01:50 83 13 103/55 L 94 04/21/20 00:50 72 16 94/59 L 93 04/21/20 00:00 78 04/20/20 23:50 75 13 110/62 92 04/20/20 23:00 37.5 C 88 14 109/75 96 04/20/20 21:50 79 13 108/64 94 04/20/20 20:50 77 14 109/67 95 04/20/20 20:30 88 04/20/20 20:00 37.4 C 76 17 93 Resident Activity Tracking Resident Involvement: Resident Care Provided Care Provided: Adult [facility]
[2020-04-21] MEDS: metroNIDAZOLE 500 MG/100 ML BAG IV SCH (08:08)
[2020-04-21] MEDS: FAMOTIDINE 20 MG in SYRINGE 3 ML IV SCH (08:10)
[2020-04-21] MEDS ORDERED: CLOPIDOGREL BISULFATE 75 MG TAB PO SCH (09:00)
--- NOTE | 2020-04-21 09:51 | Cardiology Progress Note ---
Date of Service April 21, 2020 Assessment & Plan (1) Elevated troponin: -troponin I level peaked at 13.1 and is now down to 2.23. -suspect this elevation related to chest compressions. -do not suspect an acute coronary syndrome. (2) Abnormal EKG: -transient anterolateral ST segment changes, now resolved. (3) Left ventricular dysfunction: -mildly reduced LVEF with a proximal and mid anterior and anteroseptal wall motion abnormality. -suspect this is related to mechanical injury from chest compressions. -would not treat as an acute coronary syndrome. -stable for hospital discharge. -will repeat echocardiogram as an outpatient in 1-2 weeks. Admission and Anticipated Discharge Date Admission Date: April 19, 2020 Subjective The patient is resting comfortably in the bedside chair without complaints of chest pain or dyspnea. She is anxious for hospital discharge. Physical Exam Physical Exam: In general this is a well-developed well-nourished white female seated in the bedside chair. HEENT exam is negative. Neck is supple with full carotid upstrokes. No obvious bruits. Jugular venous pressure is difficult to assess. Cardiovascular exam reveals a regular rhythm with distant heart sounds. No obvious murmurs. Lungs are clear without rales, rhonchi, or wheezes. Abdomen is soft without bruits. Extremities reveal intact radial artery pulses bilaterally. There is no peripheral edema. Results & Data ([facility]) Vital Signs (Past 12 Hours) Vital Signs Temp Pulse Resp BP Pulse Ox 04/21/20 08:00 75 04/21/20 07:00 37.5 C 94 H 18 106/69 97 04/21/20 05:02 97 H 24 97 04/21/20 04:57 101/62 04/21/20 03:50 37.2 C 72 12 101/62 92 04/21/20 02:50 78 12 104/59 L 92 04/21/20 01:50 83 13 103/55 L 94 04/21/20 00:50 72 16 94/59 L 93 04/21/20 00:00 78 04/20/20 23:50 75 13 110/62 92 04/20/20 23:00 37.5 C 88 14 109/75 96 04/20/20 21:50 79 13 108/64 94 PG Care Time/CCT Total # of Minutes Spent Total Time Spent with Patient: Total time spent is greater than 50% in coordination of care (as documented) at patient's floor/unit and/or counseling patient: Coding Level of Care Code 15138 Subseq Hosp Care Lvl 3 Diagnoses Elevated troponin R79.89 Abnormal EKG R94.31 Left ventricular dysfunction I51.9
--- NOTE | 2020-04-21 10:40 | Electrocardiogram Report ---
Test Reason : Blood Pressure : / mmHG Vent. Rate : 084 BPM Atrial Rate : 084 BPM P-R Int : 164 ms QRS Dur : 068 ms QT Int : 420 ms P-R-T Axes : 079 078 094 degrees QTc Int : 496 ms Normal sinus rhythm Prolonged QT Abnormal ECG When compared with ECG of 19-APR-2020 22:35, No significant change was found Confirmed by Kamlesh Garay ([id number]) on 04/21/2020 10:40:04 AM Referred By: REFERRED SELF Confirmed By:Kamlesh Garay
[2020-04-21] MEDS: ASPIRIN 81 MG ECTAB PO SCH (11:57)
--- NOTE | 2020-04-21 17:23 | Billing Data ---
Date of Service April 21, 2020 Coding Level of Care Code 41168 Subseq Hosp Care Lvl 3
--- NOTE | 2020-04-21 17:46 | Critical Care Progress Note ---
Date of Service April 21, 2020 Assessment & Plan (1) Admitted to intensive care unit: 1) Acute airway obstruction: Reason Critically Ill: 54-year-old female with acute airway obstruction requiring intubation and emergent bronchoscopy, successfully extubated yesterday Neuro - CAM ICU negative Cardiac - Elevated troponinlikely secondary cardiac contusion -Discussed with cardiology -No evidence of malignant arrhythmias -Continue to monitor on telemetry Respiratory - Acute airway obstructionresolved GI - Diverticulitis POAaccording to patient's daughter she was taking ciprofloxacin 500 twice daily, and Flagyl for diverticulitis -Patient reports she has been on and off antibiotics since August for diverticulitis -Discontinue antibiotics at this time N.p.o. RENAL/LYTES - AKIresolved - Foleydiscontinue Nevarez ENDO - No history diabetes or thyroid disease ICU hyperglycemic protocol HEME - H&H stable, monitor LINES/IV ACCESS - PIV's DVT PROPHYLAXIS - SCDs Patient passed swallow study, able for downgrade from ICU Admission and Anticipated Discharge Date Admission Date: April 19, 2020 Subjective No overnight events, patient extubated yesterday Results & Data Results & Data ([facility]) Vital Signs (Past 12 Hours) Vital Signs Temp Pulse Resp BP Pulse Ox 04/21/20 17:34 37.5 C 04/21/20 16:00 100 H 04/21/20 15:00 37.8 C H 99 H 17 102/62 96 04/21/20 14:00 37.4 C 97 H 16 100/57 L 97 04/21/20 13:00 100 H 23 106/66 04/21/20 11:00 37.4 C 87 14 107/64 04/21/20 09:00 86 15 112/65 98 04/21/20 08:00 96 H 21 110/62 96 04/21/20 07:00 37.5 C 73 13 106/69 97 Coding Level of Care Code 76666 Subseq Hosp Care Lvl 1 Diagnoses Admitted to intensive care unit Z78.9
[2020-04-21] MEDS: CIPROFLOXACIN 500 MG TAB PO SCH (20:26)
[2020-04-21] MEDS: metroNIDAZOLE 500 MG TAB PO SCH (20:26)
[2020-04-21] MEDS: BUDESONIDE AQ (RHINOCORT AQ) NASAL SPRAY 32 MCG SCH (20:26)
[2020-04-21] MEDS ORDERED: ONDANSETRON INJ 2 MG/ML 2 ML VIAL IV PRN (23:58)
[2020-04-22] MEDS ORDERED: ONDANSETRON INJ 2 MG/ML 2 ML VIAL ONE (00:01)
[2020-04-22 04:30] LABS: Basophils # (auto) 0.02 K/uL (0-0.2); Basophils % (auto) 0.3 %; Eosinophils # (auto) 0.13 K/uL (0-0.5); Eosinophils % (auto) 2.1 %; Hematocrit (blood only) 34.2 % (37-47); Hemoglobin 10.8 g/dL (12.0-16.0); Immature Granulocytes # (auto) 0.01 K/uL (0.00-0.02); Immature Granulocytes % (auto) 0.2 %; Lymphocytes # (auto) 1.48 K/uL (1.2-3.4); Lymphocytes % (auto) 24.2 %; Mean Corpuscular Hemoglobin 30.8 pg (25-34); Mean Corpuscular Hgb Conc 31.6 g/dL (32-36); Mean Corpuscular Volume 97.4 fL (80-100); Mean Platelet Volume 9.7 fL (7.4-10.4); Monocytes # (auto) 0.81 K/uL (0.11-0.59); Monocytes % (auto) 13.3 %; Neutrophils # (auto) 3.66 K/uL (1.4-6.5); Neutrophils % (auto) 59.9 %; Platelet Count 178 K/uL (130-400); RDW Coefficient of Variation 13.1 % (11.5-14.5); RDW Standard Deviation 46.2 fL (36.4-46.3); Red Blood Count 3.51 M/uL (4.2-5.4); White Blood Count 6.11 K/uL (4.8-10.8)
[2020-04-22 04:46] LABS: INR 1.1 (0.9-1.1); Partial Thromboplastin Ratio 0.9; Partial Thromboplastin Time 24.8 Seconds (21.0-31.0); Prothrombin Time 11.3 Seconds (9.0-12.0)
[2020-04-22] MEDS ORDERED: ACETAMINOPHEN 325 MG TAB PO PRN (07:22)
[2020-04-22] MEDS: metroNIDAZOLE 500 MG TAB PO SCH (07:34)
[2020-04-22] MEDS: ASPIRIN 81 MG ECTAB PO SCH (07:34)
[2020-04-22] MEDS: CIPROFLOXACIN 500 MG TAB PO SCH (07:34)
[2020-04-22] MEDS: BUDESONIDE AQ (RHINOCORT AQ) NASAL SPRAY 32 MCG SCH (08:45)
[2020-04-22] MEDS ORDERED: ENOXAPARIN INJ 40 MG/0.4 ML SYR SQ SCH (09:00)
--- NOTE | 2020-04-22 10:27 | Cardiology Progress Note ---
Date of Service April 22, 2020 Assessment & Plan (1) Elevated troponin: -troponin I level peaked at 13.1. -elevation likely related to chest compressions. -do not suspect an acute coronary syndrome. (2) Abnormal EKG: -transient anterolateral ST segment changes, now resolved. (3) Left ventricular dysfunction: -mildly reduced LVEF with a hypokinesis of the anterior and anteroseptal hernandez. -suspect this is related to mechanical injury from chest compressions. -would not treat as an acute coronary syndrome. -stable for hospital discharge. -outpatient echocardiogram May 07 at 1100 in my office. -follow-up with me May 17 at 1200. Admission and Anticipated Discharge Date Admission Date: April 19, 2020 Subjective The patient is resting comfortably in the bedside chair and without complaints of chest pain or dyspnea. Physical Exam Physical Exam: In general this is a well-developed well-nourished white female seated in the bedside chair. HEENT exam is negative. Neck is supple with full carotid upstrokes. No obvious bruits. Jugular venous pressure is difficult to assess. Cardiovascular exam reveals a regular rhythm with distant heart sounds. No obvious murmurs. Lungs are clear without rales, rhonchi, or wheezes. Abdomen is soft without bruits. Extremities reveal intact radial artery pulses bilaterally. There is no peripheral edema. Results & Data ([facility]) Vital Signs (Past 12 Hours) Vital Signs Temp Pulse Pulse Resp BP Pulse Ox 04/22/20 08:00 95 H 04/22/20 07:35 36.7 C 99 H 18 116/72 100 04/22/20 04:00 81 18 92 04/22/20 00:00 37.3 C 79 98 H 20 127/76 92 Diagnostic Findings relief mate is benign. PG Care Time/CCT Total # of Minutes Spent Total Time Spent with Patient: Total time spent is greater than 50% in coordination of care (as documented) at patient's floor/unit and/or counseling patient: Coding Level of Care Code 04953 Subseq Hosp Care Lvl 3 Diagnoses Elevated troponin R79.89 Abnormal EKG R94.31 Left ventricular dysfunction I51.9
--- NOTE | 2020-04-22 11:11 | Fluoroscopy Report ---
FL video swallow HISTORY: choking episode, subsequent aspiration TECHNIQUE: Video fluoroscopic evaluation of swallowing was performed in the AP and lateral projection s by the speech pathology staff. The patient is fed nectar-thick and thin liquid barium, a barium coa corie wafer, and barium pudding. FLUOROSCOPY TIME: 1.8 minutes. A cine loop submitted. COMPARISON STUDY: Neck CT 09/19/2019. FINDINGS: There is normal hyoid excursion and epiglottic deflection. No significant penetration or as piration identified. Swallowing function is within normal limits. IMPRESSION: 1. No aspiration identified. 2. Please see the speech pathologist report for detailed findings and recommendations. ACT 112: Negative or not required by law. Electronically signed by: Prasad Jacobs M.D. 04/22/2020 11:10 AM
--- NOTE | 2020-04-22 11:30 | Discharge Summary ---
Date of Service April 22, 2020 Admission HPI Per Admitting Provider The patient is a 54-year-old female with a past medical history including asthma and migraine headaches. She presents as noted above. The patient is unable to contribute to her HPI or review of systems, and information was gathered from police reports and from EMS reports. Data Assistant Dr. Curtis has been consulted, and is coming into emergently bronch the patient, and she will be admitted to the ICU for further treatment. Admission Exam Per Admitting Provider The patient is sedated, intubated, well developed and well nourished, lying in bed and in otherwise no acute distress. HEENT--PERRL, EOMI, mucous membranes and oropharynx dry. Neck--supple. No JVD. No bruits. Thyroid normal, trachea midline, no adenopathy. Heart--normal S1 and S2. No murmurs, rubs or gallops. Lungs--decreased breath sounds throughout. Intubated Abdomen--normal bowel sounds and soft. Nondistended. Extremities--no cyanosis or clubbing. No edema. There are good distal pulses b/l. Dermatologic--normal skin turgor, normal color, no abnormal lymph nodes, no rash. Neurologic--limited exam on ventilator Rheumatologic--limited exam Psychiatric--limited exam due to sedation Principal Diagnosis Respiratory Failure Discharge Exam Constitutional WD/WN, vitals as above Eyes + anicteric sclerae ENMT external ear and nose normal, oropharynx normal Neck normal visual inspection Respiratory normal respiratory effort, lungs clear to auscultation Auscultation: no crackles, no rales, no rhonchi and no wheezes Gastrointestinal (Abdomen) Inspection/Auscultation: abdomen normal to inspection Skin no rashes, warm and dry Psychiatric A+Ox3, euthymic affect Discharge Data Allergies Allergy/AdvReac Type Severity Reaction Status Date / Time latex Allergy Mild RASH, Verified 04/19/20 19:39 BLISTERS meperidine Allergy Unknown UNKNOWN Unverified 04/19/20 19:39 peanut oil Allergy Unknown UNKNOWN Unverified 04/19/20 19:39 Penicillins Allergy Unknown UNKNOWN Unverified 04/19/20 19:39 progesterone Allergy Unknown UNKNOWN Unverified 04/19/20 19:39 clindamycin Allergy Rash Verified 04/19/20 19:39 ketorolac [From Toradol] AdvReac DOES NOT Verified 04/19/20 19:41 RESPOND WELL DUST & MOLD Allergy EXACERBATION Uncoded 04/19/20 19:41 OF ASTHMA Consultations 04/19/20 18:58 Consult Data Assistant Stat 04/19/20 19:19 ED Decision to Admit Stat 04/19/20 20:48 Consult Case Management - Discharge Planning Routine Consult Data Assistant Routine 04/20/20 04:41 Consult Cardiology Routine Ordered Studies 04/22/20 10:30 FL video swallow Routine Hospital Course (1) Acute airway obstruction: Dorothy is a 54-year-old female without underlying cardiopulmonary disease who was admitted on 04/19/20 after a witnessed choking episode at a local restaurant. Chocking episode caused aspiration of food bolus, leading to respiratory failure. First responders performed CPR prior to EMS arrival. Patient was subsequently intubated by EMS in the field and directly admitted to ICU. Foreign body (food) aspiration with subsequent respiratory failure requiring mechanical ventilation Patient choked while consuming a steak at [employer]; piece of steak was aspirated, precipitating respiratory failure. Patient was intubated in the field by EMS. On arrival to the ICU patient underwent flexible fiberoptic bronchoscopy with removal of food bolus in the right lower lobe via forceps recovery. She was placed on mechanical ventilation for a short time, before being successfully extubated. She breathed well on room air for the remainder of her hospital stay. Speech therapy conducted a bedside swallow test, which patient passed. A fluoroscopic video swallow study was also ordered which showed sufficient swallowing with all textures tested. Thus, there is no suspicion patient is a chronic aspirator or has any degree of esophageal dysmotility. Patient has no dietary restrictions moving forward. She was encouraged to eat slowly and chew her food thoroughly in the future. Elevated troponin, concern for cardiac arrest Patient received CPR by police in the field but reportedly had an intact pulse at time of EMS arrival. EKG strip from EMS did not show a shockable rhythm. Patient was unconscious, but it is unclear from report if she was pulseless at any point. Thus, it is unclear if a true cardiac arrest occurred. Troponin up peaked at 13 before trending down. TTE showed mild akinesia of septal wall. Cardiology was consulted and felt as though elevated trop secondary to traumatic chest compressions rather than ACS. She has a follow up TTE scheduled for May 07, and a follow up with [facility] on 05/17. Diverticulitis Patient has a history of diverticulitis and was undergoing treatment as outpatient prior to admission with Cipro/Flagyl. This was continued throughout her hospital stay. (2) Abnormal EKG: (3) Left ventricular dysfunction: (4) Admitted to intensive care unit: (5) Elevated troponin: (6) On mechanically assisted ventilation: (7) Asthma: Total Time Total Time Spent Total Time Spent (In Minutes): <30 Discharge Plan Discharge Items Patient Disposition: Home - Self-Care Reason For Visit: RESP ARREST, FOREIGN OBJECT Discharge Diagnosis: Respiratory Arrest Activity: Resume your previous activity Non-emergency contact: Primary Care Provider Call non-emergency contact if: your symptoms worsen Follow-up/Referrals: Colin Gonzalez MD [Primary Care Provider] - 04/30/20 11:00 am Diet: Regular Addtl Attending Provider Instructions: You were brought to [facility] by emergency medical services (EMS)after choking on a piece of steak at [facility]. Because the steak occluded a part of your airway, you went into respiratory arrest and possible cardiac arrest. EMS providers intubated (placed a breathing tube down your throat) you while you were still at [facility], and on arrival to [facility] you were placed on a ventilator in the Intensive Care Unit. A scope was placed down your throat and the piece of steak was removed. You were then successfully extubated (breathing tube removed) and able to breath normally on your own. There was evidence of heart strain on your blood work and on your echocardiogram (ultrasound of your heart). Cardiology was consulted for further care, who felt as though this evidence did not represent a heart attack, and instead was merely a side effect of having received CPR (chest compressions). Your heart was monitored while in the hospital and beat at a normal rate and rhythm. *You have a follow up echocardiogram scheduled for May [address] Garay at [facility]. You also have a follow up visit with with Dr. Garay on May 17 at 1200. Speech therapy was also consulted and performed a bedside swallow test, which you successfully passed. However you expressed continued concern over swallowing certain foods. A fluoroscopic video swallow study was ordered to further explore, which showed normal swallowing with all textures tested. Thus, you have no dietary restrictions moving forward. We recommend careful chewing of large bites of food, particularly those with coarse textures such as steak, at all times in the future. We recommend you follow up with your primary care doctor within 1 week of discharge. You may continue to take the antibiotics Flagyl and Ciprofloxacin for diverticulitis as directed by your primary care provider. Pending Studies at Discharge: No Stand-Alone Forms: My [facility], Smoking Cessation Medications and DC Order Prescriptions: Continued multivitamin Tablet 1 tab PO DAILY RF: 0 Gin Caps 2 tab PO BID RF: 0 Vitamin Regimen 0 tabs PO DAILY RF: 0 budesonide [Rhinocort Allergy] 32 mcg/actuation [place],Non-Aerosol 2 spray INTRANASAL BID RF: 0 ascorbic acid (vitamin C) [C-1000] 1,000 mg Tablet RF: 0 metronidazole 500 mg Tablet 500 mg PO BID RF: 0 ciprofloxacin HCl [Cipro] 500 mg Tablet 500 mg PO BID RF: 0 Excedrin Migraine 250-250-65 mg Tablet 1 tab PO Q6H PRN (Reason: Headache) RF: 0 selenium 200 mcg Capsule 200 mcg PO DAILY RF: 0 Green Tea Complex 150-250 mg Tablet PO RF: 0 Probiotic Formula (inulin) RF: 0 rizatriptan [Maxalt] 10 mg tablet 10 mg PO UD PRN (Reason: Migraine Headache) RF: 0 Discharge Orders: Discharge Order (Routine); Ordered 04/22/20 Ordered By: Tiffanie Valderrama/Other Patient Handouts: When a Teen or Adult Is Choking Admission Data Admit Date/Time: 04/19/20 20:03 Attending Provider: Asif Orr Admit Provider: Pastor Mcintyre Primary Care Provider: Colin Gonzalez Other Providers: Isatu Curtis ; Rafiq Xie ; Pastor Mcintyre ; Kamlesh Garay Other Interventions: Discharge Summary Assessment (RN) Last Done: 04/22/20 11:34 DC Date/Time DO NOT enter until pt leaves facility: 04/22/20 12:48 Supervising Physician Co-Signing Physician Notes I personally examined the patient and verified all moser points of history and exam, discussed case, and agree with decision making with Dr Bay. still feels off swallowing - but feels safe. video swallow went well.. vitals noted nad heent nc at mmm breathing unlabored no accessory muscles good effort. choking event/aspiration - now improved from event, still trouble swallowing - ?irritation from prior choking, ?irritation from ETT. actual swallowing mechanics are fortunately fine. stable for home. diverticulitis - finish course of abx prescribed pre-hospital stable for home, otherwise as above. Resident Activity Tracking Resident Involvement: Resident Care Provided Care Provided: Adult Hospital Medicine
--- NOTE | 2020-04-22 15:54 | Electrocardiogram Report ---
Test Reason : Blood Pressure : / mmHG Vent. Rate : 099 BPM Atrial Rate : 099 BPM P-R Int : 166 ms QRS Dur : 060 ms QT Int : 354 ms P-R-T Axes : 068 074 086 degrees QTc Int : 454 ms Normal sinus rhythm Septal infarct , age undetermined Abnormal ECG When compared with ECG of 21-APR-2020 07:47, No significant change was found Confirmed by Kamlesh Garay ([id number]) on 04/22/2020 3:54:17 PM Referred By: REFERRED SELF Confirmed By:Kamlesh Garay
--- NOTE | 2020-04-22 16:01 | Billing Data ---
Date of Service April 22, 2020 Coding Level of Care Code D/C Day Management <30 mins
== END 2020-04-22 12:48 | disposition home or self-care (01) | DRG 208 ==
LOC: ED 18:52 → SUATTDRO 20:03 → 1E 20:03